=== PATIENT | male | born 1945 | race Caucasian/White ===

== ENCOUNTER 2017-10-24 07:01 | Day surgery (SDC) | payer MEDICAID ==
[~2017-10-24] VITALS: Ht 172.7 cm; Wt 56.7 kg
[2017-10-24] VITALS (13 sets, daily range): BP systolic 105–207; BP diastolic 75–125
[~2017-10-24 07:01] MED LIST: ASPI-983 PO; ATOR80TA76 PO; CLOP75TA28 PO; FLUT16SP22 NSEACH; HYDR-87 PO; LISI-552 PO; LISI10TA2 PO; OXYB10TA PO; RT-ALBUINH IH
--- OUTSIDE RECORDS SUMMARY | 2017-10-24 07:04 | XMS REPORT ---
Author Author BLACK PERERA Organization [facility] Address [address] [place] [address] Care Team Providers Care Loader Magazine Grinder Name Role Phone DILMA BLACK Unavailable PROBLEMS Type Condition ICD9-CM Code [id number] Code Onset Dates Condition Status SNOMED Code Problem COPD (chronic obstructive pulmonary disease) J44.9 Active 12753005 Problem Degenerative disc disease at L5-S1 level M51.36 Active 43909039 Problem HTN (hypertension) I10 Active 16791389 Problem Abnormal chest xray R93.8 Active 189666757 Problem Eczema L30.9 Active 89836943 Problem BPH (benign prostatic hyperplasia) N40.0 Active 662699178 Problem Environmental allergies Z91.09 Active 509146558 Problem Overactive bladder N32.81 Active 866663681 Problem Right hip pain M25.551 Active 893904571555647 Problem Oropharyngeal dysphagia R13.12 Active 32624816 Problem 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 Active 706735276 Problem 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 Active 697535528 Problem Actinic keratosis L57.0 Active 656444110 ALLERGIES No Information SOCIAL HISTORY Never Assessed PLAN OF CARE VITAL SIGNS MEDICATIONS Medication Instructions Dosage Frequency Start Date End Date Duration Status Hydrocodone-Ibuprofen 7.5-200 MG Orally 3 times a day 1 tablet as needed 8h Dec, 28 days Active RESULTS No Results PROCEDURES No Known procedures IMMUNIZATIONS No Known Immunizations MEDICAL (GENERAL) HISTORY Type Description Date Medical History Hypertension Medical History Arthritis Medical History chronic back pain Medical History chronic canabis use Surgical History hernia repair Surgical History right hip replacement Hospitalization History surgeries only
--- OUTSIDE RECORDS SUMMARY | 2017-10-24 07:04 | XMS REPORT ---
Author Author BLACK PERERA Organization [facility] [place] Address [address] [place] [address] Care Team Providers Care Scientific Recruiter Name Role Phone DEANN PERERANETTE Unavailable PROBLEMS Type Condition ICD9-CM Code [id number] Code Onset Dates Condition Status SNOMED Code Problem COPD (chronic obstructive pulmonary disease) J44.9 Active 00171162 Problem Degenerative disc disease at L5-S1 level M51.36 Active 26131437 Problem HTN (hypertension) I10 Active 64645726 Problem Abnormal chest xray R93.8 Active 782222195 Problem Eczema L30.9 Active 34659900 Problem BPH (benign prostatic hyperplasia) N40.0 Active 072435626 Problem Environmental allergies Z91.09 Active 468448256 Problem Overactive bladder N32.81 Active 684558096 Problem Right hip pain M25.551 Active 101000005447721 Problem Oropharyngeal dysphagia R13.12 Active 77315862 Problem 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 Active 458199397 Problem 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 Active 783886518 Problem Actinic keratosis L57.0 Active 026030363 ALLERGIES No Known Allergies SOCIAL HISTORY Never Assessed PLAN OF CARE Activity Details Follow Up 2 Weeks Reason:actinic keratosis Future/Pending Procedure CRYOTHERAPY OF SKIN VITAL SIGNS Height 67.75 in 2017-03-20 Weight 124.5 lbs 2017-03-20 Temperature 97.7 degrees Fahrenheit 2017-03-20 Heart Rate 56 bpm 2017-03-20 Respiratory Rate 18 2017-03-20 BMI 19.07 kg/m2 2017-03-20 Blood pressure systolic 124 mmHg 2017-03-20 Blood pressure diastolic 67 mmHg 2017-03-20 MEDICATIONS Medication Instructions Dosage Frequency Start Date End Date Duration Status Ventolin HFA 108 (90 Base) MCG/ACT Inhalation every 4 hrs 2 puffs as needed 4h Dec, Active Hydrocodone-Ibuprofen 7.5-200 MG Orally 3 times a day 1 tablet as needed 8h February, Active Fluticasone Propionate 50 MCG/ACT Nasally Once a day 1 spray in each nostril 24h Dec, Active Oxybutynin Chloride ER 10 mg Orally Once a day 1 tablet 24h Active Lisinopril 20 mg Orally Once a day 1 tablet 24h Active Clobetasol Propionate 0.05 % Externally Twice a day 1 application to affected area 12h Dec, Active RESULTS No Results PROCEDURES Procedure Date Ordered Result Body Site CRYOTHERAPY OF SKIN March 20, 2017 IMMUNIZATIONS No Known Immunizations MEDICAL (GENERAL) HISTORY Type Description Date Medical History Hypertension Medical History Arthritis Medical History chronic back pain Medical History chronic canabis use Surgical History hernia repair Surgical History right hip replacement Hospitalization History surgeries only
--- OUTSIDE RECORDS SUMMARY | 2017-10-24 07:04 | XMS REPORT ---
Author Author BLACK PERERA Organization [facility] Address [address] [place] [address] Care Team Providers Care Communications Executive Name Role Phone BLACK PERERA Unavailable PROBLEMS Type Condition ICD9-CM Code YOY85-US Code Onset Dates Condition Status SNOMED Code Problem COPD (chronic obstructive pulmonary disease) J44.9 Active 29575820 Problem Degenerative disc disease at L5-S1 level M51.36 Active 72776470 Problem HTN (hypertension) I10 Active 85069488 Problem Abnormal chest xray R93.8 Active 820719099 Problem Eczema L30.9 Active 04660789 Problem BPH (benign prostatic hyperplasia) N40.0 Active 099100384 Problem Environmental allergies Z91.09 Active 877564367 Problem Overactive bladder N32.81 Active 368991290 Problem Right hip pain M25.551 Active 467676765067118 Problem Oropharyngeal dysphagia R13.12 Active 05012162 Problem 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 Active 488754955 Problem 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
--- OUTSIDE RECORDS SUMMARY | 2017-10-24 07:05 | XMS REPORT ---
Author Author BLACK PERERA Organization [facility] Address [address] [place] [address] Care Team Providers Care Science Manager Name Role Phone BLACK PERERA Unavailable PROBLEMS Type Condition ICD9-CM Code RST44-ZV Code Onset Dates Condition Status SNOMED Code Problem COPD (chronic obstructive pulmonary disease) J44.9 Active 17266077 Problem Degenerative disc disease at L5-S1 level M51.36 Active 53225630 Problem HTN (hypertension) I10 Active 43040790 Problem Abnormal chest xray R93.8 Active 786822332 Problem Eczema L30.9 Active 99374748 Problem BPH (benign prostatic hyperplasia) N40.0 Active 103724341 Problem Environmental allergies Z91.09 Active 253584647 Problem Overactive bladder N32.81 Active 461666672 Problem Right hip pain M25.551 Active 406860593024920 Problem Oropharyngeal dysphagia R13.12 Active 93649546 Problem 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
[2017-10-24] MEDS ORDERED: LIDOCAINE 1% INJ 50 ML (XYLOCAINE) VIAL ONE (07:06)
[2017-10-24] MEDS ORDERED: NS IV 1000 ML 1,000 ML ONE (07:06)
[2017-10-24] MEDS ORDERED: HEParin (CATH LAB) 2,000 ML IV ONE (07:07)
[2017-10-24] MEDS ORDERED: CLOP75TA69 PO (07:53)
[2017-10-24] MEDS ORDERED: LISI10TA2 PO (07:53)
[2017-10-24] MEDS ORDERED: ATOR80TA76 PO (07:53)
[2017-10-24] MEDS ORDERED: ASPI-983 PO (07:53)
[2017-10-24] MEDS: NS IV 1000 ML 1,000 ML IV SCH ×2 (07:54→17:28)
[2017-10-24 08:28] LABS: HEMOGLOBIN 14.1 G/DL (13.3-17.7); MEAN PLATELET VOLUME 9.4 FL (7.4-10.4); RED BLOOD COUNT 4.68 10^6/uL (4.35-5.85); RED CELL DISTRIBUTION WIDTH 12.6 % (10.0-14.5); WHITE BLOOD COUNT 7.9 10^3/uL (4.3-11.0)
[2017-10-24 08:39] LABS: INR 1.1 (0.8-1.4); PROTHROMBIN TIME PATIENT 14.1 SEC (12.2-14.7)
[2017-10-24] MEDS ORDERED: fentaNYL INJECTION 100 MCG/2 ML AMP ONE (08:39)
[2017-10-24] MEDS ORDERED: MIDAZOLAM 5 MG/5 ML (VERSED) VIAL ONE (08:39)
[2017-10-24] MEDS ORDERED: diphenhydrAMINE 50 MG/ML INJ (BENADRYL) ONE (08:39)
[2017-10-24 08:48] LABS: ALANINE AMINOTRANSFERASE 19 U/L (0-55); ALBUMIN 4.2 GM/DL (3.2-4.5); ALKALINE PHOSPHATASE 68 U/L (40-136); BILIRUBIN,TOTAL 0.9 MG/DL (0.1-1.0); BUN/CREATININE RATIO 15; CALCIUM 9.8 MG/DL (8.5-10.1); CARBON DIOXIDE 24 MMOL/L (21-32); CHLORIDE 104 MMOL/L (98-107); CHOLESTEROL 113 MG/DL (< 200); CREATININE SERUM 0.81 MG/DL (0.60-1.30); GFR ESTIMATED > 60; GLUCOSE 93 MG/DL (70-105); HDL CHOLESTEROL 47 MG/DL (40-60); POTASSIUM 4.2 MMOL/L (3.6-5.0); SODIUM 140 MMOL/L (135-145); TOTAL PROTEIN 7.2 GM/DL (6.4-8.2); TRIGLYCERIDES 69 MG/DL (<150); VLDL CHOLESTEROL 14 MG/DL (5-40)
[2017-10-24] MEDS ORDERED: EPTIFIBATIDE BOLUS 10 ML IV ONE (09:28)
[2017-10-24] MEDS ORDERED: HEParin 1000 UNIT/ML (10ML VIAL) FOR BOLUS ONE (09:28)
[2017-10-24] MEDS ORDERED: NITROGLYCERIN DRIP 25 MG/D5W 250 ML IV ONE (09:28)
[2017-10-24] MEDS ORDERED: CLOPIDOGREL 300 MG (PLAVIX) TABLET PO ONE (10:38)
[2017-10-24] MEDS ORDERED: ASPIRIN 81 MG CHEW (CHILDREN'S ASA) ONE (10:38)
[2017-10-24] MEDS ORDERED: NS IV 1000 ML 1,000 ML IV SCH (11:21)
--- NOTE | 2017-10-24 11:21 | Cardiac Procedure Note-CS/ASA ---
Pre-Procedure Note Pre-Op Procedure Note H&P Reviewed The H&P was reviewed, patient examined and no changes noted. Date H&P Reviewed: Oct 24, 2017 Time H&P Reviewed: 09:00 Conscious Sedation Pre-Proced Time Reviewed: 09:00 ASA Class: 3 Airway Mallampati Classification: ([place] appropriate class) I. II. III, IV Lungs Heart ASA score ASA 1: a normal healthy patient ASA 2: a patient with a mild systemic disease (mid diabetes, controlled hypertension, obesity ASA 3: a patient with a severe systemic disease that limits activity (angina , COPD, prior Myocardial infarction) ASA 4: a patient with an incapacitating disease that is a constant threat to life (CHF, renal failure) ASA 5: a moribund patient not expected to survive 24 hrs. (ruptured aneurysm) ASA 6: a declared brain patient whose organs are being harvested. For emergent operations, add the letter E after the classification Grade 2 Sedation Plan: Analgesia, Amnesia, Plan communicated to team members, Discussed options with patient/fam, Discussed risks with patient/fam Note The patient is an appropriate candidate to undergo the planned procedure, sedation, and anesthesia. The patient immediately re-assessed prior to indication. KORY VASQUEZ MD FACP FAC CCDS Oct 24, 2017 11:21
[2017-10-24] MEDS ORDERED: HYDROcodone /IBUPROFEN (VICOPROFEN) 7.5 MG/ 200 MG TAB PO PRN (11:30)
[2017-10-24] MEDS ORDERED: PATIENT MAY USE OWN MEDS, ALL PO SCH (11:30)
[2017-10-24] MEDS ORDERED: amLODIPine 10 MG (NORVASC) TAB PO NR (11:39)
[2017-10-24] MEDS ORDERED: RT-ALBUTEROL SULF 2.5 MG/3 ML PRE-MIX VIAL INH PRN (11:45)
--- NOTE | 2017-10-24 14:24 | CARDIAC CATHETERIZATION ---
DATE OF SERVICE: 10/24/2017 CARDIAC CATHETERIZATION AND CORONARY INTERVENTION REPORT The patient is a 72-year-old gentleman who is known to have coronary artery disease. He presented with acute inferior wall ST elevation myocardial infarction 3 days after the onset of symptoms in early 08/2017. He underwent successful balloon angioplasty of the distal right coronary artery into the proximal right coronary artery. He has now been having recurrent chest discomfort and some increase in his baseline shortness of breath. Cardiac catheterization was carried out today after having obtained an informed consent for cardiac catheterization and possible ad hoc coronary intervention. PROCEDURE: He was brought to the cardiac catheterization laboratory in a fasting state. Right groin was prepared and draped in the usual sterile fashion. A 1% lidocaine for local anesthesia. Modified Seldinger technique was used to advance a 5-[place] Islander sheath into the right femoral artery. A 5-[place] JL4 catheter was used for left coronary angiography. A 5-[place] JR4 catheter was used for right coronary angiography. A 5-[place] pigtail catheter was used for left heart catheterization and left ventricular angiography. PERCUTANEOUS INTERVENTION TO THE RIGHT CORONARY ARTERY: Following completion of the diagnostic procedure, we carried out percutaneous intervention to the right coronary artery where the patient had multiple lesions of up to approximately 90%. We exchanged the sheath over a wire for a 6-[place]er sheath. We gave 4000 units of intravenous heparin. A double bolus of Integrilin was also given during the procedure. We exchanged the sheath over a wire for a 6-[place] Islander sheath and used a 6-[place] JR4 guide catheter with side holes to engage the right coronary artery and to carry out intervention. We advanced a Choice floppy wire across the lesions and placed the distal end of wire in a distal terminal branch of the right coronary artery. We carried out balloon angioplasty in the distal, mid and proximal right coronary artery with Emerge 2.5 x 30 mm balloon. This reduced the stenosis from up to 90% to up to approximately 70%. We removed the balloon. We tried to advance an Alpine Xience 2.75 x 30 mm stent, but we were unable to do so. This is because the right coronary artery is very tortuous, very calcified, and had multiple lesions. We readvanced another wire (a choice extra support). This served as a hilda wire and we then tried to advance the stent again, but we were again unable to do so. We then decided to use a shorter stent. We were able to advance an Alpine Xience 2.75 x 15 mm stent. We chose to position this at the most difficult lesion, which was in the mid right coronary artery at a sharp curve. The stent was deployed at 16 atmospheres. Subsequent angiography revealed that the mid right coronary artery with the patient had approximately 90% stenosis, had 0% residual stenosis. We then removed the hilda wire. The Choice floppy wire, over which, the stent had been delivered, was left in place. We advanced another Alpine Xience 2.75 x 18 mm stent, but were not able to advance it through the proximal mid right coronary artery. We positioned this in the proximal right coronary artery at the site of approximately 70% stenosis and the stent was deployed at 16 atmospheres and the proximal part of this postdilated at 20 atmospheres. Subsequent angiography revealed 0% residual stenosis in the proximal right coronary artery where the patient previously had 70% to 80% stenosis. The distal right coronary artery, beyond the mid right coronary artery stent has a residual of approximately 50% to 60%, following balloon angioplasty today. Flow throughout the vessel is normal (ARNOLD 3). This was considered to be a good result and we decided to remove the angioplasty equipment after taking multiple views of the right coronary artery. We performed angiography of the right femoral artery through the sheath and Mynx was used to achieve hemostasis. Overall, he tolerated the procedure well. HEMODYNAMICS: Left ventricular end-diastolic pressure following coronary angiography was 14 mmHg. There was no significant pressure gradient on pullback across the aortic valve. Ascending aortic pressure 136/69 with a mean of 96 mmHg. LEFT VENTRICULAR ANGIOGRAPHY: Left ventricular angiography was carried out in the right anterior oblique projection. Global left ventricular systolic function is mildly impaired. There is diaphragmatic akinesis. Left ventricular ejection fraction is 45% to 50%. There does not appear to be significant mitral regurgitation. CORONARY ANGIOGRAPHY: Diffuse coronary calcification is present in all coronary vessels. The left main coronary artery does not exhibit significant obstructive disease. The ostial left anterior descending and the ostial left circumflex artery have approximately 50% stenosis. The right coronary artery is dominant. It had 70% proximal, 90% mid vessel and a long, up to 90%, mid to distal vessel stenosis. The distal stenosis was treated with balloon angioplasty, which reduced the stenosis to 50% to 60%. The mid right coronary artery stenosis was treated with balloon angioplasty and subsequent stenting with Alpine Xience 2.75 x 15 mm stent, which reduced the stenosis to 0% residual stenosis. The proximal right coronary artery stenosis was treated with balloon angioplasty followed by stenting (Alpine Xience 2.75 x 18 mm) with a reduction of stenosis to 0% residual. CONCLUSIONS: 1. Coronary artery disease consisting of 50% ostial stenosis of the left anterior descending and the left circumflex arteries. The right coronary artery had 70% proximal, 90% mid vessel, and a long up to 90% stenosis in the mid to distal right coronary artery. The proximal right coronary stenosis was treated with Alpine Xience 2.75 x 18 mm stent, reducing the stenosis to 0% residual stenosis. The mid right coronary artery stenosis was treated with Alpine Xience 2.75 x 15 mm stent, reducing the stenosis to 0% residual. The mid to distal right coronary artery stenosis was treated with balloon angioplasty reducing the stenosis to 50% to 60%. 2. Diaphragmatic akinesis of the left ventricle. 3. Mild impairment of global left ventricular systolic function with ejection fraction of 45% to 50%. 4. Mild elevation of left ventricular end-diastolic pressure. DISCUSSION AND RECOMMENDATIONS: Previous cardiac regimen, including dual antiplatelet therapy, SHAHRIAR-inhibitor therapy and statin therapy is being continued. He is being hospitalized for observation after today's procedure. We have advised him to avoid tobacco and marijuana use. Job ID: [id number] DocumentID: [id number] Dictated Date: 10/24/2017 11:05:13 Mash Tub Cooker Date: 10/24/2017 14:24:32 Dictated By: KORY VASQUEZ MD, MA, FACP, FACC, MTDD
[2017-10-24] MEDS: HYDROcodone /IBUPROFEN (VICOPROFEN) 7.5 MG/ 200 MG TAB PO PRN ×2 (16:31→21:03)
[2017-10-24] MEDS ORDERED: ATORVASTATIN 80 MG (LIPITOR) TABLET PO SCH (21:00)
[2017-10-25] VITALS: BP 114/68
[2017-10-25 04:00] VITALS: BP 106/92
[2017-10-25] MEDS: HYDROcodone /IBUPROFEN (VICOPROFEN) 7.5 MG/ 200 MG TAB PO PRN ×2 (05:40→12:52)
[2017-10-25 08:00] VITALS: BP 126/88
--- NOTE | 2017-10-25 08:23 | Progress Note-Cardiology ---
Cardiology SOAP Progress Note Subjective: Sitting up in bed. Wants to go home. No c/o CP, palpitations, dyspnea, syncope or near syncope. No c/o right groin pain. Objective: I&O/Vital Signs Vital Sign - Last 12Hours 10/25/17 10/25/17 10/25/17 10/25/17 04:00 04:00 07:00 08:00 Temp 97.6 Pulse 79 63 Resp 22 B/P (MAP) 106/92 (97) Pulse Ox 96 O2 Delivery Room Air Room Air Room Air 10/25/17 10/25/17 10/25/17 10/25/17 08:00 08:00 12:00 12:00 Temp 97.7 B/P (MAP) 126/88 (101) 131/51 (77) O2 Delivery Room Air Room Air Room Air Room Air 10/25/17 10/25/17 13:00 14:45 Pulse 49 B/P (MAP) Intake and Output 10/25/17 00:00 Intake Total 200 ml Output Total 850 ml Balance -650 ml Weight (Pounds): 125 Weight (Ounces): 0.0 Weight (Calculated Kilograms): 56.720985 Constitutional: AAO x 3 Respiratory: lungs clear to auscultation, other (prolonged exp phase) Cardiovascular: regular rate-rhythm, No JVD, S1 and S2 Gastrointestional: No tender, soft, audible bowel sounds Extremities: no lower extremity edema bilateral Neurologic/Psychiatric: grossly intact Skin: No rash, No ulcerations Results/Procedures: Labs Laboratory Tests 10/25/17 11:34: White Blood Count 10.7, Red Blood Count 4.70, Hemoglobin 14.1, Hematocrit 41, Mean Corpuscular Volume 87, Mean Corpuscular Hemoglobin 30, Mean Corpuscular Hemoglobin Concent 35, Red Cell Distribution Width 12.9, Platelet Count 233, Mean Platelet Volume 9.5, Sodium Level 138, Potassium Level 4.3, Chloride Level 105, Carbon Dioxide Level 24, Anion Gap 9, Blood Urea Nitrogen 17, Creatinine 0.96, Estimat Glomerular Filtration Rate > 60, BUN/Creatinine Ratio 18, Glucose Level 120H, Calcium Level 9.3 Microbiology 10/24/17 MRSA Screen - Final, Complete MRSA not isolated A/P: Assessment: Coronary artery disease. Last card cath of 10/24/17 showed 50% ostial stenosis of the left anterior descending and the left circumflex arteries. The right coronary artery had 70% proximal, 90% mid vessel, and a long up to 90% stenosis in the mid to distal right coronary artery. The proximal right coronary stenosis was treated with Alpine Xience 2.75 x 18 mm stent, reducing the stenosis to 0% residual stenosis. The mid right coronary artery stenosis was treated with Alpine Xience 2.75 x 15 mm stent, reducing the stenosis to 0% residual. The mid to distal right coronary artery stenosis was treated with balloon angioplasty, reducing the stenosis to 50% to 60%. Diaphragmatic akinesis of the left ventricle. Mild impairment of global left ventricular systolic function with ejection fraction of 45% to 50%. Mild elevation of left ventricular end-diastolic pressure. Inferior wall STEMI in early Aug 2017 (he presented on 09/01/17 with symptoms of approx 72 hours duration). This was treated with primary balloon angioplasty Chronic marijuana use - cessation advise Previous tobacco use. He quit 2005 COPD, by history H/o R hip surg several years ago H/o hypertension Chronic pain syndrome treated with narcotic analgesics by his pcp Hyperthyroidism (TSH 0.02 on 09/02/17) managed byv his pcp at [facility] Plan: Ok to discharge home today He refused any lab draw this morning Discussed compliance with medications Out pt f/u in a week Advised immediate cessation of marijuana Physician Assessment Physician Assessment No cp or palp or syncope or groin discomfort Lungs: good bilat air entry Cor: reg Ext: no c/c/e R groin: mild bruising, no hematoma A&R * As documented in our note above that I updated (italics) and as noted below * I discussed with him in detail the card cath findings on 10/24/17 and the interventions undertaken * I discussed in detail risk factor modification, our treatment strategy and the importance of med compliance KIKO LOYA Oct 25, 2017 08:23 KORY VASQUEZ MD [facility] Oct 25, 2017 15:08
[2017-10-25] MEDS ORDERED: CLOPIDOGREL 75 MG (PLAVIX) TABLET PO SCH (09:00)
[2017-10-25] MEDS ORDERED: ASPIRIN E.C. 81 MG (ECOTRIN) TAB PO SCH (09:00)
[2017-10-25] MEDS ORDERED: lisINopril 10 MG (PRINIVIL) TAB PO SCH (09:00)
[2017-10-25] MEDS ORDERED: LISINOPRIL 20MG TABLET PO SCH (09:00)
[2017-10-25] MEDS ORDERED: FLUTICASONE NASAL SPRAY (FLONASE) 16 GM BTL NS SCH (09:00)
[2017-10-25] MEDS ORDERED: METO-387 PO (10:05)
--- NOTE | 2017-10-25 10:06 | Discharge Inst-Cardiology ---
Discharge Inst-Cardiac Discharge Medications New Medications: Metoprolol Succinate (Metoprolol Succinate) 25 Mg Tab.er.24h 25 MG PO DAILY, #30 TAB 5 Refills Continued Medications: Albuterol Sulfate (Proventil Hfa) 6.7 Gm Hfa.aer.ad 2 PUFF IH Q4H PRN for SHORTNESS OF BREATH Aspirin (Aspirin EC) 81 Mg Tablet.dr 81 MG PO DAILY, TAB Atorvastatin Calcium (Atorvastatin Calcium) 80 Mg Tablet 80 MG PO HS, TAB Clopidogrel Bisulfate (Plavix) 75 Mg Tablet 75 MG PO DAILY, TAB Fluticasone Propionate (Fluticasone Propionate) 16 Gm Grady.susp 1 SPRAY NSEACH DAILY Hydrocodone/Ibuprofen (Hydrocodone-Ibuprofen 7.5-200) 1 Each Tablet 1 TAB PO QID PRN for PAIN-MODERATE Lisinopril (Lisinopril) 10 Mg Tablet 20 MG PO DAILY, TAB Oxybutynin Chloride (Oxybutynin Chloride ER) 10 Mg Tab.er.24 10 MG PO DAILY New, Converted or Re-Newed RX: Transmitted to Pharmacy Patient Instructions Patient Instructions: Please schedule out patient follow up appt in one week Orders-Post D/C & Referrals Pneu Vac Indicated: Yes KIKO LOYA Oct 25, 2017 10:06
[2017-10-25 11:44] LABS: HEMOGLOBIN 14.1 G/DL (13.3-17.7); MEAN PLATELET VOLUME 9.5 FL (7.4-10.4); RED BLOOD COUNT 4.7 10^6/uL (4.35-5.85); RED CELL DISTRIBUTION WIDTH 12.9 % (10.0-14.5); WHITE BLOOD COUNT 10.7 10^3/uL (4.3-11.0)
[2017-10-25 12:00] VITALS: BP 131/51
[2017-10-25 12:08] LABS: BUN/CREATININE RATIO 18; CALCIUM 9.3 MG/DL (8.5-10.1); CARBON DIOXIDE 24 MMOL/L (21-32); CHLORIDE 105 MMOL/L (98-107); CREATININE SERUM 0.96 MG/DL (0.60-1.30); GFR ESTIMATED > 60; GLUCOSE 120 MG/DL (70-105); POTASSIUM 4.3 MMOL/L (3.6-5.0); SODIUM 138 MMOL/L (135-145)
== END 2017-10-25 14:48 | disposition home or self-care (01) ==
LOC: CATH 07:01 → ICU 11:10 → CATH 10-25 14:48
PROVIDERS: ATTEND Internal Medicine Cardiovascular Disease
DX: I25.10 Atherosclerotic heart disease of native coronary artery without angina pectoris (principal); I25.2 Old myocardial infarction; J44.9 Chronic obstructive pulmonary disease, unspecified; I10 Essential (primary) hypertension; G89.4 Chronic pain syndrome; E05.90 Thyrotoxicosis, unspecified without thyrotoxic crisis or storm; F12.90 Cannabis use, unspecified, uncomplicated; Z87.891 Personal history of nicotine dependence; Z79.899 Other long term (current) drug therapy
CPT/HCPCS: 36415; 80048; 80053; 80061; 85027; 85610; 85730; 87081; 92928; 93005; 93458

== ENCOUNTER → 2018-01-13 | Outpatient (CLI) | payer MEDICAID ==
[~2018-01-13] MED LIST changes: +CLOP75TA69 PO; +METO-387 PO
== END ==
LOC: CARD 13:03
PROVIDERS: ATTEND Internal Medicine Cardiovascular Disease
DX: I25.10 Atherosclerotic heart disease of native coronary artery without angina pectoris (principal); I25.5 Ischemic cardiomyopathy; I50.22 Chronic systolic (congestive) heart failure; J44.9 Chronic obstructive pulmonary disease, unspecified; Z86.39 Personal history of other endocrine, nutritional and metabolic disease
CPT/HCPCS: 93306

== ENCOUNTER → 2018-01-30 | Outpatient (CLI) | payer MEDICAID ==
[~2018-01-30] MED LIST changes: +CATHETER FLUSH 10 ML SYR IV PRN; +IOHEXOL 350 MG/ML 100 ML (OMNIPAQUE 350) VIAL IV ONE; +NS 250 ML (IVPB) BAG IV ONE
[2018-01-30 08:46] LABS: BASOPHILS % (AUTO) 0 % (0-10); EOSINOPHILS # (AUTO) 0.2 10^3/uL (0.0-0.3); EOSINOPHILS % (AUTO) 2 % (0-10); HEMATOCRIT 45 % (40-54); HEMOGLOBIN 15.9 G/DL (13.3-17.7); LYMPHOCYTES % (AUTO) 26 % (12-44); MEAN CORPUSCULAR HEMOGLOBIN 30 PG (25-34); MEAN CORPUSCULAR HGB CONC 35 G/DL (32-36); MEAN CORPUSCULAR VOLUME 86 FL (80-99); MEAN PLATELET VOLUME 8.9 FL (7.4-10.4); MONOCYTES # (AUTO) 0.6 X 10^3 (0.0-1.0); MONOCYTES % (AUTO) 8 % (0-12); NEUTROPHILS # (AUTO) 4.8 X 10^3 (1.8-7.8); NEUTROPHILS % (AUTO) 63 % (42-75); PLATELET COUNT 286 10^3/uL (130-400); RED BLOOD COUNT 5.26 10^6/uL (4.35-5.85); WHITE BLOOD COUNT 7.7 10^3/uL (4.3-11.0)
[2018-01-30 09:04] LABS: ALANINE AMINOTRANSFERASE 30 U/L (0-55); ALBUMIN 4.7 GM/DL (3.2-4.5); ALKALINE PHOSPHATASE 72 U/L (40-136); BILIRUBIN,TOTAL 0.6 MG/DL (0.1-1.0); BUN/CREATININE RATIO 11; CALCIUM 10.4 MG/DL (8.5-10.1); CARBON DIOXIDE 23 MMOL/L (21-32); CHLORIDE 103 MMOL/L (98-107); CHOLESTEROL 128 MG/DL (< 200); CREATININE SERUM 0.89 MG/DL (0.60-1.30); GFR ESTIMATED > 60; GLUCOSE 105 MG/DL (70-105); HDL CHOLESTEROL 54 MG/DL (40-60); MAGNESIUM 2.2 MG/DL (1.8-2.4); POTASSIUM 4.6 MMOL/L (3.6-5.0); SODIUM 137 MMOL/L (135-145); TOTAL PROTEIN 8.3 GM/DL (6.4-8.2); TRIGLYCERIDES 66 MG/DL (<150); VLDL CHOLESTEROL 13 MG/DL (5-40)
[2018-01-30 09:33] LABS: ERYTHROCYTE SEDIMENTATION RATE 1 MM/HR (0-30)
--- NOTE | 2018-01-30 13:20 | Diagnostic Imaging Report ---
PROCEDURE: CT chest with contrast only. TECHNIQUE: Multiple contiguous axial images were obtained through the chest after administration of intravenous contrast. INDICATION: Chest pain. COMPARISON: There are no prior CT examinations available for comparison. FINDINGS: The heart size is within normal limits. There are coronary artery calcifications evident. The ascending aorta is not abnormally dilated, and there is no sign of a dissection. The ascending aorta measures 3.7 x 3.7 cm in maximum AP and transverse diameters. The pulmonary arteries do not fully opacify, but there is no definite defect to suggest a pulmonary embolus. There are a few small mediastinal nodes. These are not pathologically enlarged. The thyroid gland, where visualized, is unremarkable. There are emphysematous changes involving both lungs. There is also a small poorly defined parenchymal density in the left upper lung. This measures 0.9 x 1.9 cm. This may be secondary to scar formation. There is also a small 0.5 x 0.7 cm parenchymal density in the right apex. This could represent a small nodule. There is scar formation in the right apex as well. Of more concern, however, there is a 1.3 x 1.3 cm rounded soft tissue mass in the right infrahilar region amidst several pulmonary vessels. This mass has a smooth margin but is not calcified. This could represent a benign process. The possibility that this is related to neoplasm cannot be entirely excluded, however. If previous studies are available, they would be helpful for comparison. If there are no prior exams, then PET/CT would be recommended for further evaluation. The sections through the upper abdomen fail to show any sign of an acute abnormality. The bone windows are unremarkable for a fracture or for a destructive lesion. IMPRESSION: 1. There is a 1.3 x 1.3 cm noncalcified nodule in the right lung base. The precise etiology of this finding is not certain. Considerations and recommendations as above. 2. There are emphysematous changes involving both lungs. The areas of increased density in the lung apices are most likely chronic in nature. These could also be further evaluated by PET/CT or comparison to previous exams. 3. There is no acute cardiopulmonary abnormality noted. In particular, there is no evidence for an aneurysm or dissection of the ascending aorta. 4. There is coronary artery disease. Dictated by: Dictated on workstation # [id number]
== END ==
LOC: RAD 08:32
PROVIDERS: ATTEND Nurse Practitioner Family
DX: R91.1 Solitary pulmonary nodule (principal); J43.9 Emphysema, unspecified; I25.10 Atherosclerotic heart disease of native coronary artery without angina pectoris; I65.23 Occlusion and stenosis of bilateral carotid arteries; I25.5 Ischemic cardiomyopathy; I50.22 Chronic systolic (congestive) heart failure; Z86.39 Personal history of other endocrine, nutritional and metabolic disease
CPT/HCPCS: 36415; 71260; 80053; 80061; 83735; 84443; 85025; 85652

== ENCOUNTER → 2018-04-01 | Outpatient (CLI) | payer MEDICAID ==
[~2018-04-01] MED LIST changes: -CATHETER FLUSH 10 ML SYR IV PRN; -IOHEXOL 350 MG/ML 100 ML (OMNIPAQUE 350) VIAL IV ONE; -NS 250 ML (IVPB) BAG IV ONE
--- NOTE | 2018-04-02 12:27 | Diagnostic Imaging Report ---
PET/CT INDICATION: Lung mass. TECHNIQUE: PET/CT imaging was obtained from the base of the skull through the pelvis after the administration of 11.82 mCi of F-[address] imaging was utilized for localization and attenuation correction purposes. The low energy CT utilized for attenuation correction is not considered to be of high enough spatial resolution to allow in and of itself a separate anatomical analysis. The CT chest exam performed on 01/30/2018 noted a 1.3 x 1.3 cm noncalcified nodule in the right lung base. It is not certain whether this is related to a benign process or to a malignancy. On this study that lesion shows only slight hypermetabolic activity. The maximum SUV in this area is approximately 1.2. I do suspect that this is a benign process. Even so, I would recommend a short-term (6 month) followup CT chest exam be performed for further study. There is no other hypermetabolic activity involving either lung to suggest malignancy. The previous CT exam did note a 0.9 x 1.9 cm poorly defined parenchymal density in the left upper lung. The maximum SUV in this area is less than 1. This finding is most likely secondary to scar formation. There is also a 0.7 mm parenchymal nodule in the right upper lobe. This finding does seem somewhat more conspicuous than on the prior exam but this area is not hypermetabolic either. The images through the abdomen and pelvis show no sign of any hypermetabolic activity that would indicate malignancy. There is physiologic activity in the kidneys, bowel and bladder. IMPRESSION: 1. The 1.3 cm lobulated density in the right lung base is not hypermetabolic. The other areas of increased density in the left midlung and right apex seen on the previous CT exam are not hypermetabolic either. A six-month followup CT chest exam would be recommended for further study. 2. There is no other hypermetabolic activity to suggest a malignant process. Dictated by: Dictated on workstation # [id number]
== END ==
LOC: RAD 09:37
PROVIDERS: ATTEND Nurse Practitioner Family
DX: J98.4 Other disorders of lung (principal); R91.8 Other nonspecific abnormal finding of lung field

== ENCOUNTER → 2018-04-14 | Outpatient (CLI) | payer MEDICAID ==
[~2018-04-14] MED LIST changes: +RT-ALBUTEROL SULF 2.5 MG/3 ML PRE-MIX VIAL INH ONE
== END ==
LOC: RT 15:30
PROVIDERS: ATTEND Nurse Practitioner Family
DX: J44.9 Chronic obstructive pulmonary disease, unspecified (principal)
CPT/HCPCS: 94060; 94726; 94729

== ENCOUNTER → 2018-10-07 | Outpatient (CLI) | payer MEDICAID ==
[~2018-10-07] MED LIST changes: -RT-ALBUTEROL SULF 2.5 MG/3 ML PRE-MIX VIAL INH ONE
--- NOTE | 2018-10-07 11:48 | Diagnostic Imaging Report ---
PROCEDURE: CT chest without contrast. TECHNIQUE: Multiple contiguous axial images were obtained through the chest without the use of intravenous contrast. INDICATION: Lung nodule. FINDINGS: The previous CT chest exam of 01/30/2018 noted a 1.3 x 1.3 cm noncalcified nodule in the right lung base. The subsequent PET/CT exam of 04/01/2018 noted that the nodular density in question was not hypermetabolic. On this study, that finding is again evident and does not appear to have changed significantly in size or appearance. The stability of this finding would suggest it is not related to an aggressive neoplastic process. Even it may prove worthwhile to have a short-term (6 month) followup CT chest exam for continued evaluation. The previous study also identified a small 0.5 x 0.7 cm nodule in the right upper lung as well as an area of scar formation in the right apex. Those findings are also again evident and unchanged. The irregular partially calcified parenchymal density in the left midlung seen previously is also stable (image 30 of 71). There is no new parenchymal abnormality noted. The emphysematous changes involving both lungs seen previously are again visualized and no different. There is still no sign of failure, pneumonia or pleural effusion to indicate an acute abnormality. The heart size is within normal limits. Coronary artery calcifications are again noted. The ascending aorta is not aneurysmally dilated. There is no obvious mediastinal or hilar adenopathy. Thyroid gland is generally unremarkable. The sections through the upper abdomen failed to show any sign of an acute abnormality. IMPRESSION: 1. The appearance of the chest is stable when compared with the prior exam. Specifically, the nodule in the right lung base has not changed and most likely this finding is benign. Even so, a six-month followup CT chest exam would be recommended for continued evaluation of this finding. 2. There are emphysematous changes involving both lungs but there is no sign of an acute cardiopulmonary abnormality. Dictated by: Dictated on workstation # [id number]
== END ==
LOC: RAD 11:10
PROVIDERS: ATTEND Nurse Practitioner Family
DX: J43.9 Emphysema, unspecified (principal); R91.1 Solitary pulmonary nodule; F12.10 Cannabis abuse, uncomplicated
CPT/HCPCS: 71250

== ENCOUNTER → 2022-10-01 | Outpatient (CLI) | payer MEDICAID ==
[~2022-10-01] MED LIST changes: +ASPI-1238 PO; -ASPI-983 PO; +CLOP-31 PO; -CLOP75TA69 PO; +HYDR-4085 PO; -HYDR-87 PO; -LISI-552 PO; -LISI10TA2 PO; +LISI10TA25 PO; +LISI20TA26 PO; -METO-387 PO; +MTP25TSR PO; -OXYB10TA PO; +OXYB10TA29 PO
--- NOTE | 2022-10-01 13:54 | Diagnostic Imaging Report ---
INDICATION: Right lung mass. TECHNIQUE: The serum blood glucose level at the time of injection was 109 mg/dL. The patient was administered 14.5 mCi of F-18 FDG intravenously in the right forearm and PET imaging was performed from the top of the skull to the mid thighs. COMPARISON: Prior PET/CT study from 04/01/2018. FINDINGS: There is symmetric activity throughout the brain. The soft tissues of the neck are unremarkable. No mediastinal or hilar hypermetabolism is identified. A lobulated density in the right lower lobe previously noted does show slight increase in size since a study from 2018, now measuring approximately 25 x 16 mm compared with 21 x 15 mm on the prior exam; however, this does not show hypermetabolic activity. Activity remains low. No suspicious areas of hypermetabolism in either lung are identified. The abdomen and pelvis demonstrate physiologic activity throughout the GI and tracts. No suspicious areas of hypermetabolism are identified. IMPRESSION: No suspicious hypermetabolic foci are identified. The lobulated density in the right lower lobe does show slight increase in size since the exam of 4 years earlier. Dictated by: Dictated on workstation # [id number]
== END ==
LOC: RAD 10:00
PROVIDERS: ATTEND Pediatrics
DX: R91.8 Other nonspecific abnormal finding of lung field (principal)
CPT/HCPCS: 78815; A9552

== ENCOUNTER 2023-04-23 10:49 | Observation (INO) | payer MEDICAID ==
[~2023-04-23] VITALS: Ht 172 cm; Wt 58.9 kg
[2023-04-23] MEDS ORDERED: ASPIRIN 81 MG CHEW (CHILDREN'S ASA) PO ONE (11:15)
--- NOTE | 2023-04-23 11:19 | ED Cardiac General ---
History of Present Illness General Chief Complaint: Cardiac/General Problems Stated Complaint: AFIB Nursing Triage Note: PATIENT IS BROUGHT VIA [facility]. EMS ON ALS. PATIENT IS ON 6L O2 NASAL CANNULA. 22G ON LEFT AC WITH 400ML NS GIVEN. PATIENT IS ALERT AND ORIENTED. DENIES CP. WAS SENT OVER FROM [facility] FOR A-FIB WITH RVR ON EKG. Source: patient Exam Limitations: no limitations (RAMILA CHAPIN) History of Present Illness Date Seen by Provider: Apr 23, 2023 Time Seen by Provider: 11:16 Initial Comments Patient is a 77-year-old male with a history of COPD, coronary artery disease, hypertension who presents to the ED with A-fib with RVR. Patient was seen at [facility]. Was sent to the ED by EMS for abnormal heart rhythm. Patient states over the past few months he has had increased shortness of breath. Denies of any specific chest pain. Patient states he has had a dry nonproductive cough. Has been using his breathing treatments at home without much improvement. Patient denies of any specific chest pain. Does report some generalized abdominal pain and states he does feel constipated with a bowel movement every other day. Bowel movement yesterday that was hard. Denies any vomiting, dysuria, hematuria, headache, dizziness, fever, chills or body aches. Denies history of A-fib. Does take Plavix for his history of coronary artery disease. Denies any leg swelling or leg pain. Denies any recent travels or surgeries. Patient had a cardiac stent in 2017. (RAMILA CHAPIN) Allergies and Home Medications Allergies Coded Allergies: No Known Drug Allergies (Unverified , 03/03/09) Patient Home Medication List Home Medication List Reviewed: Yes (RAMILA CHAPIN) Albuterol Sulfate (Proventil Hfa) 6.7 Gm Hfa.aer.ad, 2 PUFF IH Q4H PRN for SHORTNESS OF BREATH, (Reported) Entered as Reported by: JAIR HORNER on 09/01/17 1154 Aspirin (Aspirin EC) 81 Mg Tablet.dr, 81 MG PO DAILY, (Reported) Entered as Reported by: AMY TELLES on 10/24/17 0753 Atorvastatin Calcium (Atorvastatin Calcium) 80 Mg Tablet, 80 MG PO HS, (Reported) Entered as Reported by: AMY TELLES on 10/24/17 075 Clopidogrel Bisulfate (Plavix) 75 Mg Tablet, 75 MG PO DAILY, (Reported) Entered as Reported by: AMY TELLES on 10/24/17 075 Last Action: Last Taken Edited Fluticasone Propionate (Fluticasone Propionate) 16 Gm [place].susp, 1 SPRAY NSEACH DAILY, (Reported) Entered as Reported by: JAIR HORNER on 09/01/17 1154 Hydrocodone/Ibuprofen (Hydrocodone-Ibuprofen 7.5-200) 1 Each Tablet, 1 TAB PO QID PRN for PAIN-MODERATE, (Reported) Entered as Reported by: JAIR HORNER on 09/01/17 1154 Lisinopril (Lisinopril) 10 Mg Tablet, 20 MG PO DAILY, (Reported) Entered as Reported by: AMY TELLES on 10/24/17 075 Metoprolol Succinate (Metoprolol Succinate) 25 Mg Tab.er.24h, 25 MG PO DAILY Prescribed by: KIKO LOYA on 10/25/17 1005 Oxybutynin Chloride (Oxybutynin Chloride ER) 10 Mg Tab.er.24, 10 MG PO DAILY, (Reported) Entered as Reported by: JAIR HORNER on 09/01/17 1154 Review of Systems Review of Systems Constitutional: No chills, No diaphoresis EENTM: No Double Vision, No Eye Pain Respiratory: Cough; Denies Orthopnea; Shortness of Air Cardiovascular: Denies Chest Pain Gastrointestinal: Denies Abdominal Pain; Constipated; Denies Diarrhea, Denies Nausea, Denies Vomiting Genitourinary: Denies Burning, Denies Discharge Musculoskeletal: No back pain, No joint pain Skin: No change in color, No change in hair/nails (RAMILA CHAPIN) All Other Systems Reviewed Negative Unless Noted: Yes (RAMILA CHAPIN) Past Iyhuueg-Hdsevy-Mgdjkf Hx Patient Social History Tobacco Use?: No Substance use?: No Substance type: Marijuana, Other Additional substance use comme: FORMER USER OF MARIJUANA OF A WEEK AGO, QUIT SHOOTING UP METH YEARS BACK Substance frequency: Daily Alcohol Use?: No Pt feels they are or have been: No (RAMILA CHAPIN) Immunizations Up To Date First/Initial COVID19 Vaccinat: X'2 Second COVID19 Vaccination Markos: X'S 2 (RAMILA CHAPIN) Seasonal Allergies Seasonal Allergies: No (RAMILA CHAPIN) Past Medical History Surgery/Hospitalization HX: HX-HTN SURG.- TWO STENTS 2007 Surgeries: Yes Abdominal, Orthopedic Respiratory: No COPD Currently Using CPAP: No Currently Using BIPAP: No Cardiac: Yes Hypertension Neurological: No Genitourinary: No Gastrointestinal: Yes Abdominal Hernia, Hiatal Hernia Musculoskeletal: Yes Arthritis Endocrine: No HEENT: No Cancer: No Psychosocial: No Integumentary: No Blood Disorders: No Adverse Reaction/Blood Tranf: No (RAMILA CHAPIN) Family Medical History No Pertinent Family Hx (RAMILA CHAPIN) Physical Exam Vital Signs Vital Signs - First Documented (LANI GUZMAN MD) Vital Signs Capillary Refill : Less Than 3 Seconds (RAMILA CHAPIN) Height, Weight, BMI Height: 5'8.00" Weight: 125lbs. 0.0oz. [id number]; 19.00 BMI Method: General Appearance: No Apparent Distress, WD/WN HEENT: PERRL/EOMI, TMs Normal, Normal ENT Inspection, Pharynx Normal Neck: Full Range of Motion, Normal Inspection, Non Tender, Supple Respiratory: Chest Non Tender, Normal Breath Sounds, No Accessory Muscle Use, No Respiratory Distress, Decreased Breath Sounds Cardiovascular: No JVD, No Murmur, Irregularly Irregular Gastrointestinal: Normal Bowel Sounds, No Organomegaly, No Pulsatile Mass, Non Tender Extremity: Normal Capillary Refill, Normal Inspection, Normal Range of Motion; No Swelling Neurologic/Psychiatric: Alert, Oriented x3, No Motor/Sensory Deficits, Normal Mood/Affect, water pollution specialist II-XII Norm as Tested Skin: Normal Color, Warm/Dry (RAMILA CHAPIN) Progress/Results/Core Measures Results/Orders Lab Results Laboratory Tests Test 04/23/23 11:30 Range/Units White Blood Count 11.2 H 4.3-11.0 10^3/uL Red Blood Count 5.05 4.30-5.52 10^6/uL Hemoglobin 14.5 13.3-17.7 g/dL Hematocrit 45 40-54 % Mean Corpuscular Volume 88 80-99 fL Mean Corpuscular Hemoglobin 29 25-34 pg Mean Corpuscular Hemoglobin Concent 33 32-36 g/dL Red Cell Distribution Width 13.5 10.0-14.5 % Platelet Count 291 130-400 10^3/uL Mean Platelet Volume 8.9 L 9.0-12.2 fL Immature Granulocyte % (Auto) 0 % Neutrophils (%) (Auto) 76 H 42-75 % Lymphocytes (%) (Auto) 14 12-44 % Monocytes (%) (Auto) 8 0-12 % Eosinophils (%) (Auto) 1 0-10 % Basophils (%) (Auto) 0 0-10 % Neutrophils # (Auto) 8.5 H 1.8-7.8 10^3/uL Lymphocytes # (Auto) 1.6 1.0-4.0 10^3/uL Monocytes # (Auto) 0.9 0.0-1.0 10^3/uL Eosinophils # (Auto) 0.2 0.0-0.3 10^3/uL Basophils # (Auto) 0.0 0.0-0.1 10^3/uL Immature Granulocyte # (Auto) 0.1 0.0-0.1 10^3/uL Prothrombin Time 13.2 12.2-14.7 SEC INR Comment 1.0 0.8-1.4 Activated Partial Thromboplast Time 37 H 24-35 SEC D-Dimer 0.52 H 0.00-0.49 UG/ML Sodium Level 139 135-145 MMOL/L Potassium Level 4.2 3.6-5.0 MMOL/L Chloride Level 105 98-107 MMOL/L Carbon Dioxide Level 23 21-32 MMOL/L Anion Gap 11 5-14 MMOL/L Blood Urea Nitrogen 20 H 7-18 MG/DL Creatinine 1.00 0.60-1.30 MG/DL Estimat Glomerular Filtration Rate 78 BUN/Creatinine Ratio 20 Glucose Level 95 70-105 MG/DL Calcium Level 9.1 8.5-10.1 MG/DL Corrected Calcium 9.3 8.5-10.1 MG/DL Magnesium Level 2.0 1.6-2.4 MG/DL Total Bilirubin 0.3 0.1-1.0 MG/DL Aspartate Amino Transf (AST/SGOT) 19 5-34 U/L Alanine Aminotransferase (ALT/SGPT) 19 0-55 U/L Alkaline Phosphatase 99 40-136 U/L Myoglobin 61.2 10.0-92.0 NG/ML Troponin I < 0.028 <0.028 NG/ML B-Type Natriuretic Peptide 200.3 H <100.0 PG/ML Total Protein 7.1 6.4-8.2 GM/DL Albumin 3.7 3.2-4.5 GM/DL Lipase 10 8-78 U/L (LANI GUZMAN MD) My Orders Orders - LANI GUZMAN MD Ekg Tracing (04/23/23 10:51) (LANI GUZMAN MD) Medications Given in ED Current Medications Medications Dose Ordered Sig/Camilo Route Start Time Stop Time Status Last Admin Dose Admin Aspirin 324 mg ONCE ONCE PO 04/23/23 11:15 04/23/23 11:16 DC 04/23/23 11:26 324 MG Diltiazem HCl 20 mg ONCE ONCE IVP 04/23/23 11:15 04/23/23 11:16 DC 04/23/23 11:26 20 MG Iohexol 100 ml ONCE ONCE IV 04/23/23 12:15 04/23/23 12:19 DC 04/23/23 12:50 80 ML Sodium Chloride 100 ml ONCE ONCE IV 04/23/23 12:15 04/23/23 12:19 DC 04/23/23 12:50 80 ML (LANI GUZMAN MD) Vital Signs/I&O 04/23/23 04/23/23 04/23/23 04/23/23 10:49 10:49 11:26 14:30 Temp 36.0 Pulse 131 133 117 Resp 28 18 B/P (MAP) 144/106 (119) 144/106 159/128 (138) Pulse Ox 96 96 97 O2 Delivery Room Air Room Air Room Air (LANI GUZMAN MD) Blood Pressure Mean: 119 Comment Atrial fibrillation with rapid ventricular response. 128 bpm, QRS duration 93 MS, QTc 383 MS (RAMILA CHAPIN) Departure Communication (PCP) History of COPD does not require oxygen, ACS currently on Plavix who presents ED with shortness of breath for the past 2 months, dry cough. Was sent to the ED by EMS for A-fib with RVR. On arrival EKG with atrial fibrillation with RVR with a heart rate of 128. Patient was given 20 mg of Cardizem. General lab work, cardiac work-up, chest x-ray D-dimer was ordered. Patient did receive a full aspirin. He has no specific chest pain or abdominal pain. Oxygen remained 97% on room air. CBC showed hemoglobin 11.2. Chemistry grossly unremarkable. Normal troponin. BNP 200. Slight elevated D-dimer 0.52. Chest x-ray showed atelectasis versus infiltrate. States he is not on any current antibiotic. Does have albuterol treatments at home. CT angio of the chest was negative for PE. Did note increased size of a chronic lobulated circumscribed right lower lung mass which appears to be a mucoid impaction of a bronchus seal and regional bronchiectasis. Smaller nodules noted. Follow-up CT scan excluded neoplasm but may be infectious. Patient did receive a dose of Rocephin. Chronic emphysema changes. Patient was discussed with Dr. Lowry ambulance attendant. Heart rate did increase to 110. Recommend starting on a Cardizem drip. Patient was discussed with Dr. Toth hospitalist for [facility] who agreed accept patient for observation ICU. Appears to be new onset A-fib (RAMILA CHAPIN) Impression Primary Impression: Atrial fibrillation with RVR Disposition: ADMITTED INPATIENT Condition: Stable Admissions Decision to Admit Reason: Admit from ER (General) Decision to Admit/Date: Apr 23, 2023 Time/Decision to Admit Time: 13:34 (RAMILA CHAPIN) Departure-Patient Inst. Referrals: [facility] (PCP/Family) Primary Care Physician ATTENDING PHYSICIAN NOTE: I was physically present as attending physician in the emergency department during the care of this patient, but I was not directly involved in the decision making or delivery of care for this patient. (LANI GUZMAN MD) RAMILA CHAPIN Apr 23, 2023 11:19 LANI GUZMAN MD Apr 23, 2023 20:48
--- NOTE | 2023-04-23 11:30 | Diagnostic Imaging Report ---
CLINICAL INDICATION: Patient was brought via EMS. Patient is having 6 L of oxygen per nasal cannula. A fib with RVR. EXAM: Portable chest x-ray, upright view. COMPARISON: None. FINDINGS: There are mild patchy airspace opacities involving both lung bases with the right side more than the left. There is no pleural effusion or pneumothorax. Pulmonary vasculature and cardiac silhouette are within normal limits. Bones show no significant abnormality. IMPRESSION: There is mild bibasilar atelectasis versus infiltrates. Dictated by: Dictated on workstation # [id number]
[2023-04-23 11:43] LABS: BASOPHILS % (AUTO) 0 % (0-10); EOSINOPHILS # (AUTO) 0.2 10^3/uL (0.0-0.3); EOSINOPHILS % (AUTO) 1 % (0-10); HEMATOCRIT 45 % (40-54); HEMOGLOBIN 14.5 g/dL (13.3-17.7); LYMPHOCYTES # (AUTO) 1.6 10^3/uL (1.0-4.0); LYMPHOCYTES % (AUTO) 14 % (12-44); MEAN CORPUSCULAR HEMOGLOBIN 29 pg (25-34); MEAN CORPUSCULAR HGB CONC 33 g/dL (32-36); MEAN CORPUSCULAR VOLUME 88 fL (80-99); MEAN PLATELET VOLUME 8.9 fL (9.0-12.2); MONOCYTES # (AUTO) 0.9 10^3/uL (0.0-1.0); MONOCYTES % (AUTO) 8 % (0-12); NEUTROPHILS # (AUTO) 8.5 10^3/uL (1.8-7.8); NEUTROPHILS % (AUTO) 76 % (42-75); PLATELET COUNT 291 10^3/uL (130-400); WHITE BLOOD COUNT 11.2 10^3/uL (4.3-11.0)
[2023-04-23 11:57] LABS: ALBUMIN 3.7 GM/DL (3.2-4.5); CHLORIDE 105 MMOL/L (98-107); POTASSIUM 4.2 MMOL/L (3.6-5.0); SODIUM 139 MMOL/L (135-145)
[2023-04-23 11:58] LABS: CALCIUM 9.1 MG/DL (8.5-10.1)
[2023-04-23 11:59] LABS: GLUCOSE 95 MG/DL (70-105); TOTAL PROTEIN 7.1 GM/DL (6.4-8.2)
[2023-04-23 12:00] LABS: CARBON DIOXIDE 23 MMOL/L (21-32); PROTHROMBIN TIME PATIENT 13.2 SEC (12.2-14.7)
[2023-04-23 12:01] LABS: BILIRUBIN,TOTAL 0.3 MG/DL (0.1-1.0)
[2023-04-23 12:03] LABS: ALKALINE PHOSPHATASE 99 U/L (40-136); FIBRIN DEGRADATION PRODUCTS 0.52 UG/ML (0.00-0.49); GFR ESTIMATED 78
[2023-04-23 12:04] LABS: BUN/CREATININE RATIO 20
[2023-04-23 12:06] LABS: ALANINE AMINOTRANSFERASE 19 U/L (0-55)
[2023-04-23 12:07] LABS: LIPASE 10 U/L (8-78)
[2023-04-23] MEDS ORDERED: HOLD METFORMIN - RECEIVED CONTRAST 20 ML VIAL IV SCH (12:15)
[2023-04-23] MEDS ORDERED: IOHEXOL 350 MG/ML 100 ML (OMNIPAQUE 350) VIAL IV ONE (12:15)
[2023-04-23] MEDS ORDERED: NS 100 ML (IVPB) BAG IV ONE (12:15)
--- NOTE | 2023-04-23 13:16 | Diagnostic Imaging Report ---
INDICATION: Shortness of breath and chest pain. TECHNIQUE: All CT scans use one or more of the following dose optimizing techniques: automated exposure control, MA and/or KvP adjustment based on patient size and exam type or iterative reconstruction. COMPARISON: Study is compared with exam 01/30/2018. This is also compared with a more recent metabolic CT fusion PET 10/01/2022. FINDINGS: Pulmonary arterial branches are widely patent and well opacified. No filling defect. No PE. This patient has a chronic lobulated mass in the right lower lobe, which today measures 2.2 x 2.0 cm. This measured 1.8 x 1.6 cm back in 2018 and has had two PET scans in the interim, both showing no suspicious hypermetabolism associated with this lobulation. This today appears more likely owing to mucoid impaction and with a clmdzd-tv-baalg morphology, this may be from chronic allergic bronchopulmonary aspergillosis or other non-aggressive etiology. There are, however, new somewhat irregular smaller bilateral lower lobe opacities, on the right just above the hemidiaphragm a lesion measuring 1.6 x 1.3 cm present and in the left lower lobe a small nodule measuring 9 mm. Paraseptal cyst formation and sequelae of emphysema are chronic but progressed from priors. There is no pneumothorax. No lymphadenopathy. No pleural or pericardial effusion. The visible upper abdomen is stable. IMPRESSION: 1. Negative for PE. 2. 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 3. New smaller nodules have developed in both lower lobes. These warrant a short-term CT follow-up to exclude neoplasm but are more likely on an infectious basis as well. Repeat chest CT, would not require IV contrast, in 2-3 months' time suggested. 4. Chronic emphysematous changes and paraseptal cyst progressed from prior. 5. No lymphadenopathy or chest effusion. Dictated by: Dictated on workstation # [id number]
[2023-04-23] MEDS ORDERED: cefTRIAXone IV/IM 1,000 MG in NS (IVPB) 50 ML IV STA (13:40)
[2023-04-23] MEDS ORDERED: dilTIAZem DRIP PRE-MIX 125 ML IV SCH (13:45)
[2023-04-23] MEDS ORDERED: NS IV 500 ML 500 ML IV PRN (14:45)
[2023-04-23] MEDS ORDERED: ANTACID SUSP 30 ML UDC (MYLANTA) PO PRN (14:45)
[2023-04-23] MEDS ORDERED: BISACODYL 10 MG SUPP (DULCOLAX) PR PRN (14:45)
[2023-04-23] MEDS ORDERED: MELATONIN 3 MG TABLET PO PRN (14:45)
[2023-04-23] MEDS ORDERED: HYDROmorphone 2 MG/ML VIAL (DILAUDID) IV PRN (14:45)
[2023-04-23] MEDS ORDERED: diphenhydrAMINE 50 MG/ML INJ (BENADRYL) IVP PRN (14:45)
[2023-04-23] MEDS ORDERED: CALCIUM CARBONATE 500 MG (TUMS) TAB.CHEW PO PRN (14:45)
[2023-04-23] MEDS ORDERED: ACETAMINOPHEN 325 MG TABLET PO PRN (14:45)
[2023-04-23] MEDS ORDERED: MILK OF MAGNESIA 400 MG/5 ML 30 ML UDC PO PRN (14:45)
[2023-04-23] MEDS ORDERED: diphenhydrAMINE 25 MG TAB (BENADRYL) PO PRN (14:45)
[2023-04-23] MEDS ORDERED: ONDANSETRON 4 MG (ZOFRAN) ORAL DISSOLVE TAB PO PRN (14:45)
[2023-04-23] MEDS ORDERED: polyethylene glycoL POWDER 17 GM (MIRALAX) PACK PO PRN (14:45)
[2023-04-23] MEDS ORDERED: LACTULOSE SYRUP 10GM/15ML (ENULOSE) 30ML UDC PO PRN (14:45)
[2023-04-23] MEDS ORDERED: ONDANSETRON 4 MG/2 ML (SDV) Z0FRAN IV PRN (14:45)
[2023-04-23 15:10] VITALS: BP 159/112
--- NOTE | 2023-04-23 15:11 | Tele-ICU Consult ---
History of Present Illness History of Present Illness Date Seen by Provider: Apr 23, 2023 Time Seen by Provider: 15:06 History of Present Illness eICU admit note 77 yo M with cc of with a fib with RVR, Has had increased SOB, no chest pain. has dry cough. V rate up to 130, started on IV Cardizem, rate now down to 120, BP elevated at 153/125, Lost IV, just restarted so V rate went back up Has had SOB and cough for several months CTA showed extensive bullous lung diseae, no pulm emb, suggestion of mucoid impa ction in RLL, has several nodules in both bases seen on previous CT scans, pul art did not seem especially large PMH COPD, CAD-s/p stent 2017 on Plavix, HTN Allergies and Home Medications Allergies Coded Allergies: No Known Drug Allergies (Unverified , 03/03/09) Home Medications Albuterol Sulfate 6.7 Gm Hfa.aer.ad, 2 PUFF IH Q4H PRN for SHORTNESS OF BREATH, (Reported) Aspirin 81 Mg Tablet.dr, 81 MG PO DAILY, (Reported) Atorvastatin Calcium 80 Mg Tablet, 80 MG PO HS, (Reported) Clopidogrel Bisulfate 75 Mg Tablet, 75 MG PO DAILY, (Reported) Fluticasone Propionate 16 Gm [place].susp, 1 SPRAY NSEACH DAILY, (Reported) Hydrocodone/Ibuprofen 1 Each Tablet, 1 TAB PO QID PRN for PAIN-MODERATE, (Reported) Lisinopril 10 Mg Tablet, 20 MG PO DAILY, (Reported) Metoprolol Succinate 25 Mg Tab.er.24h, 25 MG PO DAILY Prescribed by: KIKO LOYA on 10/25/17 1005 Oxybutynin Chloride 10 Mg Tab.er.24, 10 MG PO DAILY, (Reported) Past Medical/Social/Family Hx Patient Social History Tobacco Use?: No Substance use?: No Substance type: Marijuana, Other FORMER USER OF MARIJUANA OF A WEEK AGO, QUIT SHOOTING UP METH YEARS BACK Substance frequency: Daily Alcohol Use?: No Pt stated abuse/neglect: No Immunizations Up To Date First/Initial COVID19 Vaccinat: X'2 Second COVID19 Vaccination Markos: X'S 2 Tetanus Booster (TDap): Unknown Current Status Advance Directives: No Primary Language: Bruneian Preferred Spoken Language: Bruneian Implanted or [employer] D: Stents Review of Systems Constitutional: see HPI EENTM: see HPI Respiratory: see HPI Cardiovascular: see HPI Gastrointestinal: see HPI Genitourinary: see HPI Musculoskeletal: see HPI Skin: see HPI Psychiatric/Neurological: See HPI Focused Exam Height, Weight, BMI Height: 5'8.00" Weight: 125lbs. 0.0oz. 56.258050ll; 19.00 BMI Method: Exam Exam Patient acknowledged, consented, and participated in this virtual visit which was conducted using real time audio/video Vital Signs Date Time Temp Pulse Resp B/P (MAP) Pulse Ox O2 Delivery O2 Flow Rate FiO2 04/23/23 14:45 118 04/23/23 14:35 36.5 106 20 159/112 96 Room Air 04/23/23 14:30 117 18 159/128 (138) 97 Room Air 04/23/23 11:26 133 144/106 04/23/23 10:49 96 Room Air 04/23/23 10:49 36.0 131 28 144/106 (119) 96 Room Air Height & Weight Height: 5'8.00" Weight: 125lbs. 0.0oz. 56.670405qv; 19.00 BMI Method: General Appearance: No Apparent Distress, WD/WN HEENT: PERRL/EOMI, TMs Normal, Normal ENT Inspection, Pharynx Normal Neck: Full Range of Motion, Normal Inspection, Non Tender, Supple Respiratory: Chest Non Tender, Lungs Clear, Normal Breath Sounds, No Accessory Muscle Use, No Respiratory Distress, Decreased Breath Sounds Cardiovascular: No JVD, No Murmur, Irregularly Irregular, Tachycardia Capillary Refill: Less Than 3 Seconds Gastrointestinal: normal bowel sounds, non tender, soft Extremity: Normal Capillary Refill, Normal Inspection, Normal Range of Motion, No Pedal Edema; No Swelling Neurologic/Psychiatric: Alert, Oriented x3, No Motor/Sensory Deficits, Normal Mood/Affect, precision aircraft structure assembler II-XII Norm as Tested Skin: Normal Color, Warm/Dry Results Lab Laboratory Tests 04/23/23 11:30 Assessment/Plan Assessment/Plan 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
[2023-04-23] MEDS: dilTIAZem DRIP PRE-MIX 125 ML IV SCH (15:17)
[2023-04-23] MEDS ORDERED: RT-ALBUTEROL/IPRATROPIUM 3 ML (DUONEB) VIAL INH PRN (15:30)
--- NOTE | 2023-04-23 15:47 | Consultation-Cardiology ---
HPI-Cardiology Cardiology Consultation: Date of Consultation 04/23/23 Date of Admission 04/23/2023 Attending Physician [place] Admitting Physician Admitting Physician: Arielle Toth DO Attending Physician: Arielle Toth DO Consulting Physician [place] MD HPI: Time Seen by a Provider: 15:30 The patient is a pleasant 77-year-old gentleman, chronically short of breath who was incidentally noted to have a rapid pulse rate and subsequently referred to this hospital's emergency room. Here he was noted to be in atrial fibrillation with rapid ventricular rate, in the 130s to 140s. The patient is chronically short of breath and does not feel that this has worsened recently. He denies chest pain, fever, sputum production. EKG showed atrial fibrillation with rapid ventricular rate. Ventricular response rate improved with IV diltiazem but he subsequently lost his IV. He has now received a new IV and is awaiting initiation of IV diltiazem drip. Past medical history significant for inferior wall ST elevation myocardial infarction in August 2017 at which time balloon angioplasty of his right coronary artery was performed, followed by multiple coronary stents in September 2017. Last transthoracic echo in 2018 shows a normal left ventricular ejection fraction. Review of Systems-Cardiology All Other Systems Reviewed Negative Unless Noted: Yes LTV-Tddzbo-Dnwoob Hx Patient Social History Smoking Status: Former Smoker Alcohol Use?: No Substance type: Methamphetamine, Marijuana Pt feels they are or have been: No Immunizations Up To Date Date of Influenza Vaccine: Sep 24, 2017 Past Medical History PMH As described under Assessment. Family Medical History Family Medical History: He does not report a fam h/o of early CAD or SCD Allergies and Home Medications Allergies Coded Allergies: No Known Drug Allergies (Unverified , 03/03/09) Patient Home Medication List Home Medication List Reviewed: Yes Albuterol Sulfate (Proventil Hfa) 6.7 Gm Hfa.aer.ad, 2 PUFF IH Q4H PRN for SHORTNESS OF BREATH, (Reported) Entered as Reported by: JAIR HORNER on 09/01/17 1154 Aspirin (Aspirin EC) 81 Mg Tablet.dr, 81 MG PO DAILY, (Reported) Entered as Reported by: AMY TELLES on 10/24/17 0753 Atorvastatin Calcium (Atorvastatin Calcium) 80 Mg Tablet, 80 MG PO HS, (Reported) Entered as Reported by: AMY TELLES on 10/24/17 075 Clopidogrel Bisulfate (Plavix) 75 Mg Tablet, 75 MG PO DAILY, (Reported) Entered as Reported by: AMY TELLES on 10/24/17 075 Fluticasone Propionate (Fluticasone Propionate) 16 Gm Spencer.susp, 1 SPRAY NSEACH DAILY, (Reported) Entered as Reported by: JAIR HORNER on 09/01/17 1154 Hydrocodone/Ibuprofen (Hydrocodone-Ibuprofen 7.5-200) 1 Each Tablet, 1 TAB PO QID PRN for PAIN-MODERATE, (Reported) Entered as Reported by: JAIR HORNER on 09/01/17 1154 Lisinopril (Lisinopril) 10 Mg Tablet, 20 MG PO DAILY, (Reported) Entered as Reported by: AMY TELLES on 10/24/17 075 Metoprolol Succinate (Metoprolol Succinate) 25 Mg Tab.er.24h, 25 MG PO DAILY Prescribed by: KIKO LOYA on 10/25/17 1005 Oxybutynin Chloride (Oxybutynin Chloride ER) 10 Mg Tab.er.24, 10 MG PO DAILY, (Reported) Entered as Reported by: JAIR HORNER on 09/01/17 1154 Exam Vital Signs Vital Signs Date Time Temp Pulse Resp B/P (MAP) Pulse Ox O2 Delivery O2 Flow Rate FiO2 04/23/23 15:17 118 159/112 04/23/23 15:15 27 97 Room Air 04/23/23 15:10 36.5 Labs Laboratory Tests Test 04/23/23 11:30 Range/Units White Blood Count 11.2 H 4.3-11.0 10^3/uL Red Blood Count 5.05 4.30-5.52 10^6/uL Hemoglobin 14.5 13.3-17.7 g/dL Hematocrit 45 40-54 % Mean Corpuscular Volume 88 80-99 fL Mean Corpuscular Hemoglobin 29 25-34 pg Mean Corpuscular Hemoglobin Concent 33 32-36 g/dL Red Cell Distribution Width 13.5 10.0-14.5 % Platelet Count 291 130-400 10^3/uL Mean Platelet Volume 8.9 L 9.0-12.2 fL Immature Granulocyte % (Auto) 0 % Neutrophils (%) (Auto) 76 H 42-75 % Lymphocytes (%) (Auto) 14 12-44 % Monocytes (%) (Auto) 8 0-12 % Eosinophils (%) (Auto) 1 0-10 % Basophils (%) (Auto) 0 0-10 % Neutrophils # (Auto) 8.5 H 1.8-7.8 10^3/uL Lymphocytes # (Auto) 1.6 1.0-4.0 10^3/uL Monocytes # (Auto) 0.9 0.0-1.0 10^3/uL Eosinophils # (Auto) 0.2 0.0-0.3 10^3/uL Basophils # (Auto) 0.0 0.0-0.1 10^3/uL Immature Granulocyte # (Auto) 0.1 0.0-0.1 10^3/uL Prothrombin Time 13.2 12.2-14.7 SEC INR Comment 1.0 0.8-1.4 Activated Partial Thromboplast Time 37 H 24-35 SEC D-Dimer 0.52 H 0.00-0.49 UG/ML Sodium Level 139 135-145 MMOL/L Potassium Level 4.2 3.6-5.0 MMOL/L Chloride Level 105 98-107 MMOL/L Carbon Dioxide Level 23 21-32 MMOL/L Anion Gap 11 5-14 MMOL/L Blood Urea Nitrogen 20 H 7-18 MG/DL Creatinine 1.00 0.60-1.30 MG/DL Estimat Glomerular Filtration Rate 78 BUN/Creatinine Ratio 20 Glucose Level 95 70-105 MG/DL Calcium Level 9.1 8.5-10.1 MG/DL Corrected Calcium 9.3 8.5-10.1 MG/DL Magnesium Level 2.0 1.6-2.4 MG/DL Total Bilirubin 0.3 0.1-1.0 MG/DL Aspartate Amino Transf (AST/SGOT) 19 5-34 U/L Alanine Aminotransferase (ALT/SGPT) 19 0-55 U/L Alkaline Phosphatase 99 40-136 U/L Myoglobin 61.2 10.0-92.0 NG/ML Troponin I < 0.028 <0.028 NG/ML B-Type Natriuretic Peptide 200.3 H <100.0 PG/ML Total Protein 7.1 6.4-8.2 GM/DL Albumin 3.7 3.2-4.5 GM/DL Lipase 10 8-78 U/L A/P-Cardiology Assessment/Admission Diagnosis 1. Atrial fibrillation with rapid ventricular rate. This is a new diagnosis for him. Start IV diltiazem for rate control. Start anticoagulation with apixaban 5 mg p.o. twice a day. Transthoracic echo in a.m. once ventricular response rate better controlled. 2. History of coronary artery disease. Inferior wall STEMI in early Aug 2017 (he presented on 09/01/17 with symptoms of approx 72 hours duration). This was treated with primary balloon angioplasty. Multivessel coronary stenting in September 2018. The patient is on long-term aspirin and clopidogrel. In view of anticoagulation being started, we will discontinue clopidogrel. 3. Chronic marijuana use 4. Previous tobacco use. He quit 2005 5. COPD, by history. Abnormal CT scan of the chest, concerning for mucous plugging. Pulmonary nodules. Further work-up as per ICU service 6. H/O R hip surg several years ago 7. Hypertension. Will follow 8. Chronic pain syndrome treated with narcotic analgesics by his pcp [place] MD Apr 23, 2023 15:47
[2023-04-23] MEDS: meTOprolol TARTRATE 25 MG (LOPRESSOR) TABLET PO SCH ×2 (16:56→21:31)
[2023-04-23] MEDS: RT-ALBUTEROL/IPRATROPIUM 3 ML (DUONEB) VIAL INH SCH (19:28)
[2023-04-23] MEDS: DOCUSATE SODIUM 100 MG (COLACE) CAP PO SCH (21:31)
[2023-04-23] MEDS: SENNOSIDES 8.6 MG (SENOKOT) TAB PO SCH (21:31)
[2023-04-23] MEDS: APIXABAN 5 MG (ELIQUIS) TABLET PO SCH (21:31)
[2023-04-24] MEDS: RT-ALBUTEROL/IPRATROPIUM 3 ML (DUONEB) VIAL INH SCH ×3 (03:07→14:34)
[2023-04-24 05:16] LABS: BASOPHILS # (AUTO) 0.1 10^3/uL (0.0-0.1); BASOPHILS % (AUTO) 1 % (0-10); EOSINOPHILS # (AUTO) 0.3 10^3/uL (0.0-0.3); EOSINOPHILS % (AUTO) 2 % (0-10); HEMATOCRIT 40 % (40-54); HEMOGLOBIN 12.7 g/dL (13.3-17.7); LYMPHOCYTES # (AUTO) 2.1 10^3/uL (1.0-4.0); LYMPHOCYTES % (AUTO) 15 % (12-44); MEAN CORPUSCULAR HEMOGLOBIN 29 pg (25-34); MEAN CORPUSCULAR HGB CONC 32 g/dL (32-36); MEAN CORPUSCULAR VOLUME 89 fL (80-99); MEAN PLATELET VOLUME 9.1 fL (9.0-12.2); MONOCYTES # (AUTO) 1.1 10^3/uL (0.0-1.0); MONOCYTES % (AUTO) 8 % (0-12); NEUTROPHILS # (AUTO) 9.8 10^3/uL (1.8-7.8); NEUTROPHILS % (AUTO) 74 % (42-75); PLATELET COUNT 255 10^3/uL (130-400); WHITE BLOOD COUNT 13.3 10^3/uL (4.3-11.0)
[2023-04-24 05:24] LABS: ALBUMIN 3.4 GM/DL (3.2-4.5); BILIRUBIN,TOTAL 0.2 MG/DL (0.1-1.0); CALCIUM 8.6 MG/DL (8.5-10.1); CREATININE SERUM 0.97 MG/DL (0.60-1.30); MAGNESIUM 1.7 MG/DL (1.6-2.4); PHOSPHORUS 3.3 MG/DL (2.3-4.7); POTASSIUM 4.4 MMOL/L (3.6-5.0); TOTAL PROTEIN 6.6 GM/DL (6.4-8.2)
--- NOTE | 2023-04-24 05:57 | Short Stay Summary-Hospitalist ---
History of Present Illness HPI/Chief Complaint Chief complaint: Atrial fibrillation with RVR new onset HPI: This is a 77-year-old male clinic patient of [facility] who has a past medical history of COPD who presented to the ER with palpitations found to have new onset atrial fibrillation with RVR. Cardizem drip was maintained and he converted to normal sinus rhythm this morning at 0745. Currently he is doing well. Updated patient on the plan. Await cardiology for plan. Source: patient Exam Limitations: no limitations Date Seen 04/24/23 Time Seen by a Provider: 11:00 Attending Physician [place] PCP Admitting Physician: Arielle Toth DO Attending Physician: Arielle Toth DO Referring Physician Date of Admission Apr 23, 2023 at 14:33 Home Medications & Allergies Home Medications Reviewed patient Home Medication Reconciliation performed by pharmacy medication reconciliations collection systems technician and/or nursing. Patients Allergies have been reviewed. Allergies Allergies Coded Allergies No Known Drug Allergies (Unverified03/03/09) Past Vhzwjqn-Rysuci-Wuzmhe Hx Patient Social History Marrital Status: single Employed/Student: retired Tobacco Use?: No Smoking Status: Former Smoker Use of E-Cig and/or Vaping dev: No Substance use?: Yes Substance type: Methamphetamine, Marijuana Additional substance use comme: RECENT THC USE, QUIT METH AROUND 2012 PER PT Substance frequency: Daily Alcohol Use?: No Pt feels they are or have been: No Immunizations Up To Date Date of Influenza Vaccine: Sep 24, 2017 First/Initial COVID19 Vaccinat: X'2 Second COVID19 Vaccination Markos: X'S 2 Tetanus Booster (TDap): Unknown Seasonal Allergies Seasonal Allergies: No Current Status Advance Directives: No Communicates: Verbally Primary Language: Polish Preferred Spoken Language: Polish Is interpretation needed?: No Implanted or Applied Medical D: Orthopedic hardware, Stents Past Medical History Surgeries: Abdominal, Orthopedic COPD Currently Using CPAP: No Currently Using BIPAP: No Hypertension Abdominal Hernia, Hiatal Hernia Arthritis Blood Disorders: No Adverse Reaction/Blood Tranf: No Family Medical History No Pertinent Family Hx Review of Systems Constitutional: see HPI Cardiovascular: palpitations Physical Exam Physical Exam Vital Signs Vital Signs - First Documented Capillary Refill : Less Than 3 Seconds Height, Weight, BMI Height: 5'8.00" Weight: 125lbs. 0.0oz. [id number]; 19.90 BMI Method: General Appearance: No Apparent Distress, WD/WN, Chronically ill, Thin HEENT: PERRL/EOMI, TMs Normal, Normal ENT Inspection, Pharynx Normal Neck: Full Range of Motion, Normal Inspection, Non Tender, Supple Respiratory: Chest Non Tender, Lungs Clear, Normal Breath Sounds, No Accessory Muscle Use, No Respiratory Distress, Decreased Breath Sounds Cardiovascular: Regular Rate, Rhythm, No JVD, No Murmur Gastrointestinal: Normal Bowel Sounds, No Organomegaly, No Pulsatile Mass, Non Tender Extremity: Normal Capillary Refill, Normal Inspection, Normal Range of Motion, No Pedal Edema; No Swelling Neurologic/Psychiatric: Alert, Oriented x3, No Motor/Sensory Deficits, Normal Mood/Affect, engineering professor II-XII Norm as Tested Skin: Normal Color, Warm/Dry Results Results/Procedures Labs Laboratory Tests 04/23/23 11:30 04/24/23 04:51 Patient resulted labs reviewed. Short Stay Diagnosis Discharge Diagnosis-Short Stay Admission Diagnosis New onset atrial fibrillation with RVR Final Discharge Diagnosis New onset atrial fibrillation with RVR Hypertension COPD Former smoker CAD Conclusion Plan Supportive care Discharge home on anticoagulation and metoprolol ARIELLE TOTH DO Apr 24, 2023 05:57
[2023-04-24] MEDS: MAGNESIUM 1 GM/100 ML IVPB 100 ML IV SCH ×4 (05:59→10:40)
[2023-04-24] MEDS ORDERED: KCL 20 MEQ TAB (K-DUR) PO SCH (06:00)
[2023-04-24] MEDS ORDERED: POTASSIUM CL 10MEQ/50ML IVPB 50 ML IV SCH (06:00)
[2023-04-24 06:49] VITALS: BP 146/96
[2023-04-24] MEDS: dilTIAZem DRIP PRE-MIX 125 ML IV SCH (06:49)
[2023-04-24] MEDS: APIXABAN 5 MG (ELIQUIS) TABLET PO SCH (09:02)
[2023-04-24] MEDS: meTOprolol TARTRATE 25 MG (LOPRESSOR) TABLET PO SCH (09:02)
[2023-04-24] MEDS: DOCUSATE SODIUM 100 MG (COLACE) CAP PO SCH (09:03)
[2023-04-24] MEDS: SENNOSIDES 8.6 MG (SENOKOT) TAB PO SCH (09:03)
[2023-04-24] MEDS ORDERED: LISI40TA9 PO (10:09)
[2023-04-24] MEDS ORDERED: LACT1CAP61 PO (10:09)
[2023-04-24] MEDS ORDERED: IBUP-2185 PO (10:09)
[2023-04-24] MEDS ORDERED: MULT-1136 PO (10:09)
[2023-04-24] MEDS ORDERED: FLUTICASONE NASAL SPRAY (FLONASE) 16 GM BTL NS PRN (12:00)
[2023-04-24] MEDS ORDERED: RT-ALBUTEROL SULF 2.5 MG/3 ML PRE-MIX VIAL IH PRN (12:00)
--- NOTE | 2023-04-24 12:19 | Tele-ICU Progress Note ---
Subjective Date Seen by a Provider: Apr 24, 2023 Subjective/Events-last exam (Tele-ICU Physician , Progress Note ) Service provided via interactive audio and video telecommunications E-CARE system to a patient admitted to ICU bed in [facility]. Patient is seen today due to persistent need of ICU care Available chart/ vitals / labs / Images reviewed Video assessment done using teleICU camera, rest of exam as per RN Discussed with RN Events overnight : Afebrile hemodynamically stable Respiratory - ra I/O = Drips: card gtt Pressors- no Hospital course: (04/23) 77M Admitted with Afib RVR A/P NE a fib , RVR - cardisemn ftt -AC - cards to follow CAD-Inferior wall STEMI in early Aug 2017 ( - Multivessel coronary stenting in September 2018 RLL nodyle - as per images- was f/up as outpatient with CT /PET - to cont as per bedside MDs VTE Prophylaxis: + Stress Ulcer Prophylaxis: Plans in collaboration with bedside consultants and IM MDs. Discussed with RN to reach out if any questions or concerns Case and care daily discussed on multidisciplinary rounds ( RN, PharmD, Auto Former Machine Operator , Respiratory Therapy, workers' compensation hearings officer ) A total of 10 minutes of critical care time was devoted to this patient today, required to treat and/or prevent further deterioration of critical care condition ( as above ) . I am remotely monitoring this patient from another state. I am unable to do the bedside exam, and history/physical and pertinent information is taken from other notes in the computer and bedside staff. Sepsis Event Evaluation Height, Weight, BMI Height: 5'8.00" Weight: 125lbs. 0.0oz. 56.212083ep; 19.90 BMI Method: Exam Exam Patient acknowledged, consented, and participated in this virtual visit which was conducted using real time audio/video Vital Signs Date Time Temp Pulse Resp B/P (MAP) Pulse Ox O2 Delivery O2 Flow Rate FiO2 04/24/23 11:16 36.5 04/24/23 11:00 60 37 123/81 (95) 95 Room Air 04/24/23 10:15 58 29 127/81 (96) 96 Room Air 04/24/23 10:00 63 34 95 Room Air 04/24/23 09:00 73 31 127/72 (90) 93 Room Air 04/24/23 08:00 99 Room Air 04/24/23 08:00 79 28 146/80 (102) 95 Room Air 04/24/23 08:00 36.6 04/24/23 07:46 79 04/24/23 07:15 96 Room Air 04/24/23 07:04 79 04/24/23 07:00 84 20 129/101 (110) 95 Room Air 04/24/23 06:49 89 146/96 04/24/23 06:00 85 21 139/96 (110) 94 Room Air 04/24/23 05:00 90 34 131/103 (112) 93 Room Air 04/24/23 04:00 79 22 119/78 (92) 94 Room Air 04/24/23 04:00 98 Room Air 04/24/23 03:49 36.6 04/24/23 03:07 96 Room Air 04/24/23 03:00 63 24 121/91 (101) 94 Room Air 04/24/23 02:00 75 20 131/86 (101) 93 Room Air 04/24/23 01:00 72 04/24/23 01:00 72 24 125/78 (94) 94 Room Air 04/24/23 00:15 77 17 115/86 (96) 93 Room Air 04/24/23 00:03 36.3 04/24/23 00:00 94 Room Air 04/23/23 23:00 65 25 93 Room Air 04/23/23 22:00 59 25 101/78 (86) 95 Room Air 04/23/23 21:15 57 23 122/53 (76) 94 Room Air 04/23/23 20:00 62 29 118/69 (85) 96 Room Air 04/23/23 20:00 96 Room Air 04/23/23 19:44 36.3 04/23/23 19:29 95 Room Air 04/23/23 19:00 52 04/23/23 19:00 52 30 114/66 (82) 98 Room Air 04/23/23 18:00 79 23 136/122 (127) 96 Room Air 04/23/23 17:00 125 29 153/100 (117) 95 Room Air 04/23/23 16:40 95 Room Air 04/23/23 16:00 140 24 152/120 (131) 96 Room Air 04/23/23 15:50 36.3 04/23/23 15:45 135 20 141/110 (120) 90 Room Air 04/23/23 15:30 135 37 183/96 (125) 90 Room Air 04/23/23 15:17 118 159/112 04/23/23 15:15 123 27 154/109 (124) 97 Room Air 04/23/23 15:10 36.5 118 96 04/23/23 15:00 126 24 153/125 (134) 97 Room Air 04/23/23 14:45 118 04/23/23 14:38 91 Room Air 04/23/23 14:38 36.1 04/23/23 14:35 36.5 106 20 159/112 96 Room Air 04/23/23 14:30 117 18 159/128 (138) 97 Room Air I & O 04/24/23 07:00 Intake Total 2150 ml Output Total 500 ml Balance 1650 ml Height & Weight Height: 5'8.00" Weight: 125lbs. 0.0oz. 56.147747lu; 19.90 BMI Method: General Appearance: No Apparent Distress, WD/WN HEENT: PERRL/EOMI, TMs Normal, Normal ENT Inspection, Pharynx Normal Neck: Full Range of Motion, Normal Inspection, Non Tender, Supple Respiratory: Chest Non Tender, Lungs Clear, Normal Breath Sounds, No Accessory Muscle Use, No Respiratory Distress, Decreased Breath Sounds Cardiovascular: No JVD, No Murmur, Irregularly Irregular, Tachycardia Capillary Refill: Less Than 3 Seconds Gastrointestinal: normal bowel sounds, non tender, soft Extremity: Normal Capillary Refill, Normal Inspection, Normal Range of Motion, No Pedal Edema; No Swelling Neurologic/Psychiatric: Alert, Oriented x3, No Motor/Sensory Deficits, Normal Mood/Affect, window cutter II-XII Norm as Tested Skin: Normal Color, Warm/Dry Results Lab Laboratory Tests 04/23/23 11:30 04/24/23 04:51 Assessment/Plan Assessment/Plan 1 [place]NA COX MD Apr 24, 2023 12:19
--- NOTE | 2023-04-24 14:48 | Cardiology Progress Note ---
Subjective Time Seen by Provider: 16:00 Subjective/Events-last exam The patient is a pleasant 77-year-old gentleman, chronically short of breath who was incidentally noted to have a rapid pulse rate and subsequently referred to this hospital's emergency room. Here he was noted to be in atrial fibrillation with rapid ventricular rate, in the 130s to 140s. The patient is chronically short of breath and does not feel that this has worsened recently. He denies chest pain, fever, sputum production. EKG showed atrial fibrillation with rapid ventricular rate. Ventricular response rate improved with IV diltiazem but he subsequently lost his IV. He has now received a new IV and is awaiting initiation of IV diltiazem drip. Past medical history significant for inferior wall ST elevation myocardial infarction in August 2017 at which time balloon angioplasty of his right coronary artery was performed, followed by multiple coronary stents in September 2017. Last transthoracic echo in 2018 shows a normal left ventricular ejection fraction. Patient comfortable. Denies chest pain or shortness of breath. Telemetry reviewed. Patient back to normal sinus rhythm with PACs Transthoracic echo 04/23/2023 Normal left ventricular ejection fraction 55 to 60% Mild left atrial enlargement No pericardial effusion Normal IVC No advanced valvular dysfunction CT scan of the chest 04/23/2023 IMPRESSION: 1. Negative for PE. 2. 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 3. New smaller nodules have developed in both lower lobes. These warrant a short-term CT follow-up to exclude neoplasm but are more likely on an infectious basis as well. Repeat chest CT, would not require IV contrast, in 2-3 months' time suggested. 4. Chronic emphysematous changes and paraseptal cyst progressed from prior. 5. No lymphadenopathy or chest effusion. Review of Systems As mentioned in history of present illness Exam Vital Signs Vital Signs Date Time Temp Pulse Resp B/P (MAP) Pulse Ox O2 Delivery O2 Flow Rate FiO2 04/24/23 14:34 97 Room Air 04/24/23 13:30 68 18 129/107 (114) 04/24/23 11:16 36.5 S1 and S2 regular. No murmur S3 or S4 Chest clear to auscultation No lower extremity edema Neurological examination nonfocal Labs Laboratory Tests Test 6/28/23 04:51 Range/Units White Blood Count 13.3 H 4.3-11.0 10^3/uL Red Blood Count 4.46 4.30-5.52 10^6/uL Hemoglobin 12.7 L 13.3-17.7 g/dL Hematocrit 40 40-54 % Mean Corpuscular Volume 89 80-99 fL Mean Corpuscular Hemoglobin 29 25-34 pg Mean Corpuscular Hemoglobin Concent 32 32-36 g/dL Red Cell Distribution Width 13.6 10.0-14.5 % Platelet Count 255 130-400 10^3/uL Mean Platelet Volume 9.1 9.0-12.2 fL Immature Granulocyte % (Auto) 1 % Neutrophils (%) (Auto) 74 42-75 % Lymphocytes (%) (Auto) 15 12-44 % Monocytes (%) (Auto) 8 0-12 % Eosinophils (%) (Auto) 2 0-10 % Basophils (%) (Auto) 1 0-10 % Neutrophils # (Auto) 9.8 H 1.8-7.8 10^3/uL Lymphocytes # (Auto) 2.1 1.0-4.0 10^3/uL Monocytes # (Auto) 1.1 H 0.0-1.0 10^3/uL Eosinophils # (Auto) 0.3 0.0-0.3 10^3/uL Basophils # (Auto) 0.1 0.0-0.1 10^3/uL Immature Granulocyte # (Auto) 0.1 0.0-0.1 10^3/uL Sodium Level 136 135-145 MMOL/L Potassium Level 4.4 3.6-5.0 MMOL/L Chloride Level 106 98-107 MMOL/L Carbon Dioxide Level 23 21-32 MMOL/L Anion Gap 7 5-14 MMOL/L Blood Urea Nitrogen 23 H 7-18 MG/DL Creatinine 0.97 0.60-1.30 MG/DL Estimat Glomerular Filtration Rate 81 BUN/Creatinine Ratio 24 Glucose Level 109 H 70-105 MG/DL Calcium Level 8.6 8.5-10.1 MG/DL Corrected Calcium 9.1 8.5-10.1 MG/DL Phosphorus Level 3.3 2.3-4.7 MG/DL Magnesium Level 1.7 1.6-2.4 MG/DL Total Bilirubin 0.2 0.1-1.0 MG/DL Aspartate Amino Transf (AST/SGOT) 17 5-34 U/L Alanine Aminotransferase (ALT/SGPT) 16 0-55 U/L Alkaline Phosphatase 87 40-136 U/L Total Protein 6.6 6.4-8.2 GM/DL Albumin 3.4 3.2-4.5 GM/DL A/P-Cardiology Assessment/Plan 1. Atrial fibrillation with rapid ventricular rate. This is a new diagnosis for him. He has now reverted to normal sinus rhythm, with PACs noted on telemetry strip. Discontinue IV diltiazem for rate control. Start metoprolol 25 mg p.o. twice a day. He has been started on anticoagulation with apixaban 5 mg p.o. twice a day. Clopidogrel being discontinued. Transthoracic echo shows sinus rhythm, mild left atrial enlargement and a normal left ventricular ejection fraction. No advanced valvular dysfunction noted.. 2. History of coronary artery disease. Inferior wall STEMI in early Aug 2017 (he presented on 09/01/17 with symptoms of approx 72 hours duration). This was treated with primary balloon angioplasty. Multivessel coronary stenting in September 2018. The patient is on long-term aspirin and clopidogrel. In view of anticoagulation being started, we will discontinue clopidogrel. Continue aspirin 81 mg daily 3. Chronic marijuana use 4. Previous tobacco use. He quit 2005 5. COPD, by history. Abnormal CT scan of the chest, concerning for mucous plugging. Pulmonary nodules. Further work-up as per ICU service. He has an appointment at [facility] upon discharge for 04/25/2023 6. H/O R hip surg several years ago 7. Hypertension. Will follow 8. Chronic pain syndrome treated with narcotic analgesics by his pcp Okay for discharge home from cardiology standpoint. Outpatient follow-up with cardiology in 6 to 8 weeks [place] MD Apr 24, 2023 14:47
[2023-04-24] MEDS ORDERED: METO-333 PO (15:58)
[2023-04-24] MEDS ORDERED: APIX5TAB PO (15:58)
[2023-04-24] MEDS ORDERED: lisINopril 40 MG (PRINIVIL) TABLET PO SCH (21:00)
[2023-04-24] MEDS ORDERED: ASPIRIN E.C. 81 MG (ECOTRIN) TAB PO SCH (21:00)
[2023-04-24] MEDS ORDERED: CLOPIDOGREL 75 MG (PLAVIX) TABLET PO SCH (21:00)
[2023-04-25] MEDS ORDERED: MULTIVIT W/MINERALS TAB (THERAGRAN M) PO SCH (07:00)
[2023-04-25] MEDS ORDERED: LACTOBACILLUS ACIDOPHILUS (PROBIOTIC) CAPSULE PO SCH (09:00)
[2023-04-25] MEDS ORDERED: NON-FORMULARY MEDICATION 1 EA EA (Multivitamin 1 EACH) PO SCH (09:00)
[2023-04-25] MEDS ORDERED: LACTOBACILLUS RHAMNOSUS R11 PO SCH (09:00)
== END 2023-04-24 16:15 | disposition home or self-care (01) ==
LOC: EDUNIT# 10:49 → ER 10:50 → UNDOADMOB 14:33 → ICU 14:33 → UNDODISOB 04-24 16:15
PROVIDERS: ADMIT Internal Medicine; ATTEND Internal Medicine
DX: I48.91 Unspecified atrial fibrillation (principal); I25.10 Atherosclerotic heart disease of native coronary artery without angina pectoris; I10 Essential (primary) hypertension; I21.3 ST elevation (STEMI) myocardial infarction of unspecified site; J44.9 Chronic obstructive pulmonary disease, unspecified; G89.29 Other chronic pain; R07.9 Chest pain, unspecified; F12.90 Cannabis use, unspecified, uncomplicated; Z95.5 Presence of coronary angioplasty implant and graft; Z98.890 Other specified postprocedural states; Z79.82 Long term (current) use of aspirin; Z87.891 Personal history of nicotine dependence; Z79.01 Long term (current) use of anticoagulants
CPT/HCPCS: 71045; 71275; 80053 ×2; 83690; 83735 ×2; 83874; 83880; 84100; 84484; 85025 ×2; 85379; 85610; 85730; 87081; 93005 ×2; 93041; 94640 ×2; 96366 ×2; 96375; 99284; C8929; G0378; 36415; 93306

== ENCOUNTER 2023-04-28 17:15 | Emergency (ER) | payer MEDICAID ==
[~2023-04-28] VITALS: Ht 172 cm; Wt 58.9 kg
[~2023-04-28 17:15] MED LIST changes: +APIX5TAB PO; +IBUP-2185 PO; +LACT1CAP61 PO; +LISI40TA9 PO; +METO-333 PO; +MULT-1136 PO
[2023-04-28] MEDS ORDERED: meTOprolol 5 MG/5 ML (LOPRESSOR) VIAL IV ONE ×2 (17:30→18:15)
[2023-04-28] MEDS ORDERED: ASPIRIN 81 MG CHEW (CHILDREN'S ASA) PO ONE (17:30)
--- NOTE | 2023-04-28 17:35 | ED Cardiac General ---
History of Present Illness General Chief Complaint: Cardiac/General Problems Stated Complaint: NOT FEELING WELL Nursing Triage Note: PT TO [facility] 3 WITH CC OF A FIB WITH RVR, WAS JUST HERE RECENTLY WITH THE SAME. Source: patient Exam Limitations: no limitations (LILA NIETO MD) History of Present Illness Date Seen by Provider: Apr 28, 2023 Time Seen by Provider: 17:17 Initial Comments Here with report of fast heart rate. States that it came on today. Denies any significant chest pain but then states he may have had a little chest discomfort earlier that only lasted a few seconds and then resolved. Has known A-fib with RVR and was admitted earlier this week for the same. He was initiated on diltiazem and then subsequently changed to metoprolol per inpatient cardiology notes. He tolerated that well. [place] the palpitations today and decided to come back for reevaluation. He is on Eliquis and states that he is taking that as directed. His metoprolol dose is 25 mg p.o. twice daily. He does follow with Dr Tanner. Denies other constitutional or cardiac symptoms otherwise. Timing/Duration: 4-6 hours Severity: mild Location: central Activities at Onset: none Prior CP/Workup: cardiac cath, echocardiography, stress test Modifying Factors: improves with rest NTG SL DEFENSE ATTORNEY: No ASA po DEFENSE ATTORNEY: Yes Associated Systoms: Chest Pain; No Cough, No Fever/Chills, No Headaches, No Malaise, No Shortness of Air, No Weakness (LILA NIETO MD) Allergies and Home Medications Allergies Coded Allergies: No Known Drug Allergies (Unverified , 03/03/09) Patient Home Medication List Home Medication List Reviewed: Yes (LILA NIETO MD) Albuterol Sulfate (Proventil Hfa) 6.7 Gm Hfa.aer.ad, 2 PUFF IH Q4H PRN for SHORTNESS OF BREATH, (Reported) Entered as Reported by: JAIR HORNER on 09/01/17 1154 Apixaban (Eliquis) 5 Mg Tablet, 5 MG PO BID Prescribed by: LOR LIMON on 04/24/23 1558 Aspirin (Aspirin EC) 81 Mg Tablet.dr, 81 MG PO HS, (Reported) Entered as Reported by: AMY TELLES on 10/24/17 0753 Atorvastatin Calcium (Atorvastatin Calcium) 80 Mg Tablet, 80 MG PO HS, (Reported) Entered as Reported by: AMY TELLES on 10/24/17 0753 Fluticasone Propionate (Fluticasone Propionate) 50 Mcg/Actuation [place].susp, 1-2 SPRAY NSEACH DAILY PRN for CONGESTION, (Reported) Entered as Reported by: JAIR HORNER on 09/01/17 1154 Ibuprofen (Ibuprofen) 200 Mg Capsule, 400-800 MG PO Q8H PRN for PAIN-MILD (1-4), (Reported) Entered as Reported by: PAUL STONE on 04/24/23 1009 Lactobacillus Rhamnosus R0011 (Probiotic Digestive Care) 20 Billion Cell Capsule, 1 EACH PO DAILY, (Reported) Entered as Reported by: PAUL STONE on 04/24/23 1009 Lisinopril (Lisinopril) 40 Mg Tablet, 40 MG PO HS, (Reported) Entered as Reported by: PAUL STONE on 04/24/23 100 Metoprolol Tartrate (Metoprolol Tartrate) 25 Mg Tablet, 25 MG PO BID Prescribed by: LOR LIMON on 04/24/23 1558 Multivitamin (Multivitamin) 1 Each Tablet, 1 EACH PO DAILY, (Reported) Entered as Reported by: PAUL STONE on 04/24/23 1009 Discontinued Medications Clopidogrel Bisulfate (Plavix) 75 Mg Tablet, 75 MG PO HS, (Reported) Entered as Reported by: AMY TELLES on 10/24/17 075 Hydrocodone/Ibuprofen (Hydrocodone-Ibuprofen 7.5-200) 1 Each Tablet, 1 TAB PO QID PRN for PAIN-MODERATE, (Reported) Discontinued Reason: No Longer Taking Entered as Reported by: JAIR HORNER on 09/01/17 1154 Lisinopril (Lisinopril) 10 Mg Tablet, 20 MG PO DAILY, (Reported) Discontinued Reason: No Longer Taking Entered as Reported by: AMY TELLES on 10/24/17 0753 Metoprolol Succinate (Metoprolol Succinate) 25 Mg Tab.er.24h, 25 MG PO DAILY Discontinued Reason: No Longer Taking Prescribed by: KIKO LOYA on 10/25/17 1005 Oxybutynin Chloride (Oxybutynin Chloride ER) 10 Mg Tab.er.24, 10 MG PO DAILY, (Reported) Discontinued Reason: No Longer Taking Entered as Reported by: JAIR HORNER on 09/01/17 2872 Review of Systems Review of Systems Constitutional: see HPI; No chills, No fever EENTM: No Nose Congestion, No Throat Pain Respiratory: Denies Cough, Denies Shortness of Air Cardiovascular: See HPI, Irregular Heart Rate, Palpitations Gastrointestinal: Denies Nausea, Denies Vomiting Genitourinary: No Symptoms Reported Musculoskeletal: no symptoms reported Skin: no symptoms reported (LILA NIETO MD) Past Ysnyhwg-Fmcgum-Qrqlhc Hx Patient Social History Tobacco Use?: No Smoking Status: Former Smoker Use of E-Cig and/or Vaping dev: No Substance use?: No Substance type: Marijuana (Quit recently) Alcohol Use?: No (LILA NIETO MD) Immunizations Up To Date First/Initial COVID19 Vaccinat: X'2 Second COVID19 Vaccination Markos: X'S 2 Third COVID19 Vaccination Date: X (LILA NIETO MD) Seasonal Allergies Seasonal Allergies: No (LILA NIETO MD) Past Medical History Surgery/Hospitalization HX: HX-HTN, A FIB SURG.- [facility] Surgeries: Yes Abdominal, Orthopedic Respiratory: No COPD Currently Using CPAP: No Currently Using BIPAP: No Cardiac: Yes Hypertension Neurological: No Genitourinary: No Gastrointestinal: Yes Abdominal Hernia, Hiatal Hernia Musculoskeletal: Yes Arthritis Endocrine: No HEENT: No Cancer: No Psychosocial: No Integumentary: No Blood Disorders: No Adverse Reaction/Blood Tranf: No (LILA NIETO MD) Family Medical History Reviewed Nursing Family Hx (LILA NIETO MD) No Pertinent Family Hx (LILA NIETO MD) Physical Exam Vital Signs Vital Signs - First Documented (LANI GUZMAN MD) Vital Signs Capillary Refill : Less Than 3 Seconds (LILA NIETO MD) Height, Weight, BMI Height: 5'8.00" Weight: 125lbs. 0.0oz. 56.356367ut; 19.00 BMI Method: General Appearance: No Apparent Distress, WD/WN HEENT: PERRL/EOMI, Other (Mucous membranes dry) Neck: Non Tender, Supple Respiratory: Lungs Clear, Normal Breath Sounds Cardiovascular: No Murmur, Irregularly Irregular, Tachycardia Gastrointestinal: Non Tender, Soft Extremity: Normal Range of Motion, Non Tender Neurologic/Psychiatric: Alert, Oriented x3 Skin: Normal Color, Warm/Dry (LILA NIETO MD) Progress/Results/Core Measures Results/Orders Lab Results Laboratory Tests Test 04/28/23 17:21 Range/Units White Blood Count 11.4 H 4.3-11.0 10^3/uL Red Blood Count 4.25 L 4.30-5.52 10^6/uL Hemoglobin 12.3 L 13.3-17.7 g/dL Hematocrit 38 L 40-54 % Mean Corpuscular Volume 89 80-99 fL Mean Corpuscular Hemoglobin 29 25-34 pg Mean Corpuscular Hemoglobin Concent 32 32-36 g/dL Red Cell Distribution Width 13.7 10.0-14.5 % Platelet Count 296 130-400 10^3/uL Mean Platelet Volume 9.3 9.0-12.2 fL Immature Granulocyte % (Auto) 1 % Neutrophils (%) (Auto) 73 42-75 % Lymphocytes (%) (Auto) 13 12-44 % Monocytes (%) (Auto) 11 0-12 % Eosinophils (%) (Auto) 2 0-10 % Basophils (%) (Auto) 0 0-10 % Neutrophils # (Auto) 8.3 H 1.8-7.8 10^3/uL Lymphocytes # (Auto) 1.5 1.0-4.0 10^3/uL Monocytes # (Auto) 1.2 H 0.0-1.0 10^3/uL Eosinophils # (Auto) 0.2 0.0-0.3 10^3/uL Basophils # (Auto) 0.1 0.0-0.1 10^3/uL Immature Granulocyte # (Auto) 0.1 0.0-0.1 10^3/uL Prothrombin Time 14.1 12.2-14.7 SEC INR Comment 1.1 0.8-1.4 Activated Partial Thromboplast Time 45 H 24-35 SEC Sodium Level 135 135-145 MMOL/L Potassium Level 4.4 3.6-5.0 MMOL/L Chloride Level 106 98-107 MMOL/L Carbon Dioxide Level 20 L 21-32 MMOL/L Anion Gap 9 5-14 MMOL/L Blood Urea Nitrogen 17 7-18 MG/DL Creatinine 0.93 0.60-1.30 MG/DL Estimat Glomerular Filtration Rate 86 BUN/Creatinine Ratio 18 Glucose Level 109 H 70-105 MG/DL Calcium Level 8.5 8.5-10.1 MG/DL Corrected Calcium 9.1 8.5-10.1 MG/DL Magnesium Level 1.8 1.6-2.4 MG/DL Total Bilirubin 0.2 0.1-1.0 MG/DL Aspartate Amino Transf (AST/SGOT) 23 5-34 U/L Alanine Aminotransferase (ALT/SGPT) 18 0-55 U/L Alkaline Phosphatase 81 40-136 U/L Myoglobin 31.6 10.0-92.0 NG/ML Troponin I < 0.028 <0.028 NG/ML Total Protein 6.5 6.4-8.2 GM/DL Albumin 3.3 3.2-4.5 GM/DL (LANI GUZMAN MD) Medications Given in ED Current Medications Medications Dose Ordered Sig/Camilo Route Start Time Stop Time Status Last Admin Dose Admin Aspirin 324 mg ONCE ONCE PO 04/28/23 17:30 04/28/23 17:31 DC 04/28/23 17:33 324 MG Metoprolol Tartrate 5 mg ONCE ONCE IV 04/28/23 17:30 04/28/23 17:31 DC 04/28/23 17:30 5 MG Metoprolol Tartrate 5 mg ONCE ONCE IV 04/28/23 18:15 04/28/23 18:16 DC 04/28/23 18:21 5 MG Metoprolol Tartrate 50 mg ONCE ONCE PO 04/28/23 17:45 04/28/23 17:46 DC 04/28/23 17:46 50 MG (LANI GUZMAN MD) Vital Signs/I&O 04/28/23 04/28/23 17:18 17:18 Temp 35.8 Pulse 129 Resp 20 B/P (MAP) 128/ Pulse Ox 95 100 O2 Delivery Nasal Cannula Nasal Cannula O2 Flow Rate 215.00 2.00 (LANI GUZMAN MD) Progress Progress Note : Progress Note Seen and evaluated. IV by EMS. Normal saline initiated by EMS 1 L and we will complete that bolus. We will go ahead and initiate chest pain protocol with EKG, labs including CBC, CMP, troponin and myoglobin and get chest x-ray. Heart rate is 100-1 20. Blood pressure 160s systolic. I do believe he will respond with metoprolol as he has recently. I will give Lopressor 5 mg IV and then give metoprolol 50 mg p.o. I did discuss this with Dr Tanner, patient's primary director of corporate strategy who is on-call today. He is in agreement with that plan. If we can get adequate rate control with this then discharge is reasonable if there is no other significant findings. Monitor patient. Echo done 04/24/23 results reviewed and shows EF of 55 to 65% without significant wall motion abnormalities. Differential diagnosis includes atrial fibrillation with rapid ventricular rate, cardiac event, dehydration, electrolyte abnormality. (LILA NIETO MD) Progress Note : Time: 19:19 Progress Note Care of this patient was assumed from Dr. Nieto at shift change. He had received 2 doses of Lopressor IV. He had excellent response and is now having a heart rate around 100. Oxygen saturation was in the high 90s to 100% on room air. He was not in any distress. He did report subjectively feeling improved. He has been instructed to increase his metoprolol to 50 mg twice daily. I made notation on his pill bottle. I have some concern that this may worsen his COPD. Increased albuterol use may then cause an increase in the heart rate. I have instructed him to update Dr. Tanner with how he is tolerating the increase in metoprolol. If not tolerated well, he may need to change to another medication such as diltiazem. As of now, he seems to be tolerating beta-blockers without problem. Labs were reviewed and interpreted in their entirety by me. CBC demonstrated only slight abnormalities with WBC of 11.4 and hemoglobin slightly low at 12.3. CMP, magnesium, coags, and troponin were all unremarkable. Radiologist's report of the chest x-ray was reviewed. There were persistent streaky opacities, but patient is not exhibiting any other signs of infection at this time. He is being discharged in stable and improved condition. See discharge instructions for further discussion. (LANI GUZMAN MD) Initial ECG Impression Date: Apr 28, 2023 Initial ECG Impression Time: 17:25 Initial ECG Rate: 120 Initial ECG Rhythm: A Fib/Flutter Initial ECG Impression: Atrial Fibrillation w/RVR Comment Atrial fibrillation with rapid ventricular response with normal axis. No evidence of ST elevation AL. Interpreted by me. (LILA NIETO MD) Diagnostic Imaging Diagonstic Imaging: Xray Plain Films/CT/US/NM/MRI: chest Comments NAME: ROXANNE RIVERA [facility] REC#: [id number] PT STATUS: REG ER : 1945 PHYSICIAN: LILA NIETO MD ADMIT DATE: 04/28/23/ER Signed Date of Exam:04/28/23 CHEST 1 VIEW, AP/PA ONLY EXAMINATION: Chest radiograph, portable AP view. DATE: 04/28/2023 5:44 PM INDICATION: 77-year-old male, chest pain. COMPARISON: April 23, 2023. FINDINGS: There is redemonstrated elevation of left hemidiaphragm. Heart size and mediastinal contours are grossly unchanged. The aorta appears enfolded and/or ectatic. There is no identified pneumothorax. There is no large pleural effusion. There are mild streaky opacities in the lung bases which appear essentially unchanged. There is end-stage left glenohumeral arthritis with intra-articular body in the axillary recess. IMPRESSION: Persistent and largely unchanged streaky opacities in the lung bases which may relate to atelectasis and/or infiltrate. Dictated by: Dictated on workstation # [id number] Dict: 04/28/231750 Trans: 04/28/231906 [id number] Interpreted by: SHAE WOOD MD Electronically signed by: SHAE WOOD MD 04/28/231906 (LANI GUZMAN MD) Departure Impression Primary Impression: Atrial fibrillation with RVR Additional Impressions: Palpitations COPD (chronic obstructive pulmonary disease) Qualified Codes: J44.9 - Chronic obstructive pulmonary disease, unspecified Disposition: 01 HOME, SELF-CARE Condition: Improved Departure-Patient Inst. Decision time for Depature: 19:16 (LANI GUZMAN MD) Referrals: [facility] (PCP/Family) Primary Care Physician Patient Instructions: Atrial fibrillation, Chronic obstructive pulmonary disease (COPD) Add. Discharge Instructions: Increase metoprolol to 50 mg twice daily. Metoprolol does have potential to possibly worsen COPD. If you find increasing your metoprolol dose worsen COPD and increases your need for inhalers, please discuss changing metoprolol to another medication such as diltiazem with Dr. Tanner. Please follow-up with Dr. Tanner and Dr. Irizarry as soon as possible. Please call on Saturday morning to make appointments. Return to the emergency room if you have worsening problems despite following these instructions. All discharge instructions reviewed with patient and/or family. Voiced understanding. Copy Copies To 1: KORY TANNER MD FACP [facility] CCDS Copies To 2: FLOR IRIZARRY MD, TIMOTHY D MD Apr 28, 2023 17:35 LANI GUZMAN MD Apr 28, 2023 19:22
[2023-04-28] MEDS ORDERED: meTOprolol TARTRATE 50 MG (LOPRESSOR) TAB PO ONE (17:45)
[2023-04-28 17:48] LABS: BASOPHILS # (AUTO) 0.1 10^3/uL (0.0-0.1); BASOPHILS % (AUTO) 0 % (0-10); EOSINOPHILS # (AUTO) 0.2 10^3/uL (0.0-0.3); EOSINOPHILS % (AUTO) 2 % (0-10); HEMATOCRIT 38 % (40-54); HEMOGLOBIN 12.3 g/dL (13.3-17.7); LYMPHOCYTES # (AUTO) 1.5 10^3/uL (1.0-4.0); LYMPHOCYTES % (AUTO) 13 % (12-44); MEAN CORPUSCULAR HEMOGLOBIN 29 pg (25-34); MEAN CORPUSCULAR HGB CONC 32 g/dL (32-36); MEAN CORPUSCULAR VOLUME 89 fL (80-99); MEAN PLATELET VOLUME 9.3 fL (9.0-12.2); MONOCYTES # (AUTO) 1.2 10^3/uL (0.0-1.0); MONOCYTES % (AUTO) 11 % (0-12); NEUTROPHILS # (AUTO) 8.3 10^3/uL (1.8-7.8); NEUTROPHILS % (AUTO) 73 % (42-75); PLATELET COUNT 296 10^3/uL (130-400); WHITE BLOOD COUNT 11.4 10^3/uL (4.3-11.0)
[2023-04-28 17:51] LABS: ALBUMIN 3.3 GM/DL (3.2-4.5); CHLORIDE 106 MMOL/L (98-107); POTASSIUM 4.4 MMOL/L (3.6-5.0); SODIUM 135 MMOL/L (135-145)
[2023-04-28 17:52] LABS: INR 1.1 (0.8-1.4); PROTHROMBIN TIME PATIENT 14.1 SEC (12.2-14.7)
[2023-04-28 17:53] LABS: CALCIUM 8.5 MG/DL (8.5-10.1)
[2023-04-28 17:54] LABS: GLUCOSE 109 MG/DL (70-105); TOTAL PROTEIN 6.5 GM/DL (6.4-8.2)
[2023-04-28 17:55] LABS: CARBON DIOXIDE 20 MMOL/L (21-32)
[2023-04-28 17:56] LABS: BILIRUBIN,TOTAL 0.2 MG/DL (0.1-1.0)
[2023-04-28 17:57] LABS: ALKALINE PHOSPHATASE 81 U/L (40-136); CREATININE SERUM 0.93 MG/DL (0.60-1.30); GFR ESTIMATED 86
[2023-04-28 17:58] LABS: BUN/CREATININE RATIO 18
[2023-04-28 18:00] LABS: ALANINE AMINOTRANSFERASE 18 U/L (0-55)
[2023-04-28 18:01] LABS: MAGNESIUM 1.8 MG/DL (1.6-2.4)
--- NOTE | 2023-04-28 18:02 | Diagnostic Imaging Report ---
EXAMINATION: Chest radiograph, portable AP view. DATE: 04/28/2023 5:44 PM INDICATION: 77-year-old male, chest pain. COMPARISON: April 23, 2023. FINDINGS: There is redemonstrated elevation of left hemidiaphragm. Heart size and mediastinal contours are grossly unchanged. The aorta appears enfolded and/or ectatic. There is no identified pneumothorax. There is no large pleural effusion. There are mild streaky opacities in the lung bases which appear essentially unchanged. There is end-stage left glenohumeral arthritis with intra-articular body in the axillary recess. IMPRESSION: Persistent and largely unchanged streaky opacities in the lung bases which may relate to atelectasis and/or infiltrate. Dictated by: Dictated on workstation # [id number]
[2023-04-28 19:28] VITALS: BP 120/61
== END 2023-04-28 19:28 | disposition home or self-care (01) ==
LOC: EDUNIT# 17:15 → ER 17:16
DX: I48.91 Unspecified atrial fibrillation (principal); I10 Essential (primary) hypertension; J44.9 Chronic obstructive pulmonary disease, unspecified; Z79.899 Other long term (current) drug therapy; Z87.891 Personal history of nicotine dependence; Z79.01 Long term (current) use of anticoagulants
CPT/HCPCS: 36415; 71045; 80053; 83735; 83874; 84484; 85025; 85610; 85730; 93005; 93041

== ENCOUNTER 2023-05-01 13:59 | Emergency (ER) | payer MEDICAID ==
[~2023-05-01] VITALS: Ht 172 cm; Wt 58.9 kg
--- NOTE | 2023-05-01 14:11 | ED Cardiac General ---
History of Present Illness General Chief Complaint: Cardiac/General Problems Stated Complaint: TACHYCARDIA Source: patient Exam Limitations: no limitations History of Present Illness Date Seen by Provider: May 01, 2023 Time Seen by Provider: 14:11 Initial Comments Patient is a 77-year-old male with a history of COPD, A-fib, coronary artery disease who presents the ED by EMS for shortness of breath, abnormal rhythm. Patient states around 12 he started not feeling good. Took his blood pressure which read high and had a heart rate over 100s. Described it as his heart "was skipping beats". Patient with shortness of breath with ambulation. Her shortness of breath improves while sitting. He states he has been feeling short of breath over the past few months. He reports a cough over the past few months as well. EMS states oxygen was 91 to 92% was placed on 2 L of oxygen. Does not wear oxygen at home. Denies of any specific chest pain, abdominal pain, vomiting, diarrhea, fever, chills. Patient has been seen twice over the past week for similar symptoms. Patient was admitted for A-fib with RVR. Currently on metoprolol 25 mg twice daily and Eliquis. Patient denies of any recent travel surgeries. Denies any leg swelling. Allergies and Home Medications Allergies Coded Allergies: No Known Drug Allergies (Unverified , 03/03/09) Patient Home Medication List Home Medication List Reviewed: Yes Albuterol Sulfate (Proventil Hfa) 6.7 Gm Hfa.aer.ad, 2 PUFF IH Q4H PRN for SHORTNESS OF BREATH, (Reported) Entered as Reported by: JAIR HORNER on 09/01/17 1154 Apixaban (Eliquis) 5 Mg Tablet, 5 MG PO BID Prescribed by: LOR LIMON on 04/24/23 1558 Aspirin (Aspirin EC) 81 Mg Tablet.dr, 81 MG PO HS, (Reported) Entered as Reported by: AMY TELLES on 10/24/17 0753 Atorvastatin Calcium (Atorvastatin Calcium) 80 Mg Tablet, 80 MG PO HS, (Reported) Entered as Reported by: AMY TELLES on 10/24/17 0753 Diltiazem HCl (Cardizem Cd) 180 Mg Cap.er.24h, 180 MG PO DAILY Prescribed by: BETTY ALEMAN on 05/01/23 1529 Doxycycline Monohydrate (Doxycycline Monohydrate) 100 Mg Tablet, 100 MG PO BID Prescribed by: BETTY ALEMAN on 05/01/23 1529 Fluticasone Propionate (Fluticasone Propionate) 50 Mcg/Actuation Alpha.susp, 1-2 SPRAY NSEACH DAILY PRN for CONGESTION, (Reported) Entered as Reported by: JAIR HORNER on 09/01/17 115 Furosemide (Lasix) 20 Mg Tablet, 20 MG PO DAILY Prescribed by: BETTY ALEMAN on 05/01/23 1529 Ibuprofen (Ibuprofen) 200 Mg Capsule, 400-800 MG PO Q8H PRN for PAIN-MILD (1-4), (Reported) Entered as Reported by: PAUL STONE on 04/24/23 1009 Lactobacillus Rhamnosus R0011 (Probiotic Digestive Care) 20 Billion Cell Capsule, 1 EACH PO DAILY, (Reported) Entered as Reported by: PAUL STONE on 04/24/23 1009 Lisinopril (Lisinopril) 40 Mg Tablet, 40 MG PO HS, (Reported) Entered as Reported by: PAUL STONE on 04/24/23 1009 Metoprolol Tartrate (Metoprolol Tartrate) 25 Mg Tablet, 25 MG PO BID Prescribed by: LOR LIMON on 04/24/23 1558 Multivitamin (Multivitamin) 1 Each Tablet, 1 EACH PO DAILY, (Reported) Entered as Reported by: PAUL STONE on 04/24/23 1009 Discontinued Medications Clopidogrel Bisulfate (Plavix) 75 Mg Tablet, 75 MG PO HS, (Reported) Entered as Reported by: AMY TELLES on 10/24/17 0753 Hydrocodone/Ibuprofen (Hydrocodone-Ibuprofen 7.5-200) 1 Each Tablet, 1 TAB PO QID PRN for PAIN-MODERATE, (Reported) Discontinued Reason: No Longer Taking Entered as Reported by: JAIR HORNER on 09/01/17 1154 Lisinopril (Lisinopril) 10 Mg Tablet, 20 MG PO DAILY, (Reported) Discontinued Reason: No Longer Taking Entered as Reported by: AMY TELLES on 10/24/17 0753 Metoprolol Succinate (Metoprolol Succinate) 25 Mg Tab.er.24h, 25 MG PO DAILY Discontinued Reason: No Longer Taking Prescribed by: KIKO LOYA on 10/25/17 1005 Oxybutynin Chloride (Oxybutynin Chloride ER) 10 Mg Tab.er.24, 10 MG PO DAILY, (Reported) Discontinued Reason: No Longer Taking Entered as Reported by: JAIR HORNER on 09/01/17 1154 Review of Systems Review of Systems Constitutional: No chills, No diaphoresis, No malaise, No weakness EENTM: No Eye Pain Respiratory: Cough, Shortness of Air Cardiovascular: Denies Chest Pain, Denies Edema; Irregular Heart Rate Gastrointestinal: Denies Abdominal Pain, Denies Diarrhea, Denies Nausea, Denies Vomiting Genitourinary: Denies Burning, Denies Discharge Musculoskeletal: No back pain, No joint pain Skin: No change in color, No change in hair/nails Psychiatric/Neurological: Denies Anxiety, Denies Depressed All Other Systems Reviewed Negative Unless Noted: Yes Past Gbrcsxw-Ahlzlx-Lqtnji Hx Patient Social History Tobacco Use?: No Substance use?: No Alcohol Use?: No Pt feels they are or have been: No Immunizations Up To Date First/Initial COVID19 Vaccinat: X'2 Second COVID19 Vaccination Markos: X'S 2 Third COVID19 Vaccination Date: X'2 Seasonal Allergies Seasonal Allergies: No Past Medical History Surgery/Hospitalization HX: HX-HTN, A FIB, copd, SURG.- [facility] Surgeries: Yes Abdominal, Orthopedic Respiratory: No COPD Currently Using CPAP: No Currently Using BIPAP: No Cardiac: Yes Hypertension Neurological: No Genitourinary: No Gastrointestinal: Yes Abdominal Hernia, Hiatal Hernia Musculoskeletal: Yes Arthritis Endocrine: No HEENT: No Cancer: No Psychosocial: No Integumentary: No Blood Disorders: No Adverse Reaction/Blood Tranf: No Family Medical History No Pertinent Family Hx Physical Exam Vital Signs Vital Signs - First Documented 05/01/23 14:03 Temp 36.1 Pulse 123 Resp 22 B/P (MAP) 158/132 (141) Pulse Ox 98 O2 Delivery Nasal Cannula O2 Flow Rate 2.00 Capillary Refill : Height, Weight, BMI Height: 5'8.00" Weight: 125lbs. 0.0oz. [id number]; 19.00 BMI Method: General Appearance: No Apparent Distress, WD/WN HEENT: PERRL/EOMI, TMs Normal, Normal ENT Inspection, Pharynx Normal Neck: Full Range of Motion, Normal Inspection, Non Tender, Supple Respiratory: Chest Non Tender, Lungs Clear, Normal Breath Sounds, No Accessory Muscle Use, No Respiratory Distress Cardiovascular: Irregularly Irregular Gastrointestinal: Normal Bowel Sounds, No Organomegaly, No Pulsatile Mass, Non Tender, Soft Extremity: Normal Capillary Refill, Normal Inspection, Normal Range of Motion Neurologic/Psychiatric: Alert, Oriented x3, No Motor/Sensory Deficits, Normal Mood/Affect, returned goods repairer II-XII Norm as Tested Progress/Results/Core Measures Results/Orders Lab Results Laboratory Tests Test 05/01/23 14:17 Range/Units White Blood Count 14.0 H 4.3-11.0 10^3/uL Red Blood Count 4.14 L 4.30-5.52 10^6/uL Hemoglobin 12.1 L 13.3-17.7 g/dL Hematocrit 37 L 40-54 % Mean Corpuscular Volume 89 80-99 fL Mean Corpuscular Hemoglobin 29 25-34 pg Mean Corpuscular Hemoglobin Concent 33 32-36 g/dL Red Cell Distribution Width 13.9 10.0-14.5 % Platelet Count 296 130-400 10^3/uL Mean Platelet Volume 9.4 9.0-12.2 fL Immature Granulocyte % (Auto) 1 % Neutrophils (%) (Auto) 80 H 42-75 % Lymphocytes (%) (Auto) 10 L 12-44 % Monocytes (%) (Auto) 9 0-12 % Eosinophils (%) (Auto) 0 0-10 % Basophils (%) (Auto) 0 0-10 % Neutrophils # (Auto) 11.2 H 1.8-7.8 10^3/uL Lymphocytes # (Auto) 1.4 1.0-4.0 10^3/uL Monocytes # (Auto) 1.2 H 0.0-1.0 10^3/uL Eosinophils # (Auto) 0.1 0.0-0.3 10^3/uL Basophils # (Auto) 0.0 0.0-0.1 10^3/uL Immature Granulocyte # (Auto) 0.1 0.0-0.1 10^3/uL Neutrophils % (Manual) 73 % Lymphocytes % (Manual) 17 % Monocytes % (Manual) 9 % Eosinophils % (Manual) 1 % Basophils % (Manual) 0 % Band Neutrophils 0 % Blood Morphology Comment NORMAL Prothrombin Time 15.4 H 12.2-14.7 SEC INR Comment 1.2 0.8-1.4 Activated Partial Thromboplast Time 45 H 24-35 SEC Sodium Level 137 135-145 MMOL/L Potassium Level 4.1 3.6-5.0 MMOL/L Chloride Level 106 98-107 MMOL/L Carbon Dioxide Level 21 21-32 MMOL/L Anion Gap 10 5-14 MMOL/L Blood Urea Nitrogen 19 H 7-18 MG/DL Creatinine 0.84 0.60-1.30 MG/DL Estimat Glomerular Filtration Rate 91 BUN/Creatinine Ratio 23 Glucose Level 107 H 70-105 MG/DL Calcium Level 8.8 8.5-10.1 MG/DL Corrected Calcium 9.3 8.5-10.1 MG/DL Magnesium Level 1.9 1.6-2.4 MG/DL Total Bilirubin 0.4 0.1-1.0 MG/DL Aspartate Amino Transf (AST/SGOT) 27 5-34 U/L Alanine Aminotransferase (ALT/SGPT) 37 0-55 U/L Alkaline Phosphatase 84 40-136 U/L Myoglobin 42.8 10.0-92.0 NG/ML Troponin I < 0.028 <0.028 NG/ML B-Type Natriuretic Peptide 1471.1 H <100.0 PG/ML Total Protein 6.9 6.4-8.2 GM/DL Albumin 3.4 3.2-4.5 GM/DL Lipase 13 8-78 U/L My Orders Orders - RAMILA CHAPIN PA Cbc With Automated Diff (05/01/23 14:09) Magnesium (05/01/23 14:09) Chest 1 View, Ap/Pa Only (05/01/23 14:09) Ekg Tracing (05/01/23 14:09) Comprehensive Metabolic Panel (05/01/23 14:09) Myoglobin Serum (05/01/23 14:09) Protime With Inr (05/01/23 14:09) Partial Thromboplastin Time (05/01/23 14:09) O2 (05/01/23 14:09) Monitor-Rhythm Ecg Trace Only (05/01/23 14:09) Ed Iv/Invasive Line Start (05/01/23 14:09) Lipase (05/01/23 14:09) Bnp [place] (05/01/23 14:09) Troponin I [place] (05/01/23 14:09) Aspirin Chewable Tablet (Baby Aspirin Ch (05/01/23 14:15) Diltiazem Injection (Cardizem Injection) (05/01/23 14:15) Manual Differential (05/01/23 14:17) Furosemide Injection (Lasix Injection) (05/01/23 15:30) Diltiazem Cd 24 Hr Capsule (Cardizem Cd (05/02/23 09:00) Ceftriaxone Iv/Im (Rocephin Iv/Im) (05/01/23 15:26) Medications Given in ED Current Medications Medications Dose Ordered Sig/Camilo Route Start Time Stop Time Status Last Admin Dose Admin Aspirin 324 mg ONCE ONCE PO 05/01/23 14:15 05/01/23 14:16 DC 05/01/23 14:12 324 MG Diltiazem HCl 10 mg ONCE ONCE IVP 05/01/23 14:15 05/01/23 14:16 DC 05/01/23 14:22 10 MG Furosemide 40 mg ONCE ONCE IVP 05/01/23 15:30 05/01/23 15:31 DC 05/01/23 15:44 40 MG Vital Signs/I&O 05/01/23 05/01/23 05/01/23 14:03 14:03 14:22 Temp 36.1 Pulse 123 115 Resp 22 B/P (MAP) 158/132 (141) 165/123 Pulse Ox 98 100 O2 Delivery Nasal Cannula Nasal Cannula O2 Flow Rate 2.00 3.00 Comment Atrial fibrillation with rapid ventricular response, 120 bpm, QRS duration 97 MS, QTc 391 MS. Departure Communication (PCP) Reviewed previous ER visits, A-fib with RVR, CHF, coronary artery disease. Patient with a history of smoking, COPD, A-fib presents ED by EMS for not feeling well, tachycardia. This is patient's third visit in the past week. Was admitted late March for A-fib with RVR. Was seen by Dr. Carpenter. Discharged with metoprolol 25 mg twice daily and Eliquis. Had echocardiogram performed which noted a ejection fraction of 55 to 60%. Patient was seen 3 days ago for A-fib with RVR was given Lopressor and continued with metoprolol. patient on arrival denies of any specific chest pain. Heart rate in the 120s. A-fib with RVR. Was given 10 mg of Cardizem. EKG showed atrial fibrillation with rapid ventricular response. CBC showed elevated white blood count of 14 which has slightly trended upward since his previous visits. Normal troponin but increase in his BNP of 1417. BNP of 200 at the end of March. Concerning for CHF. Received 40 mg IV Lasix. Patient heart rate improved from 122 to 80 bpm continue Afib. Patient was placed on 2 L nasal cannula by EMS. This was removed and patient was 97 to 100% on room air. chest x-ray did show pulmonary edema with pleural effusion. Patient was discussed with Dr. Carpenter. Recommended starting Cardizem CD 180 mg daily. Also recommends 20 mg p.o. Lasix daily. On cardiac standpoint he is okay for patient to go home. He is scheduled follow-up on Saturday. Due to the elevated white blood count did receive 1 g Rocephin. Does report a cough without strong evidence of pneumonia on chest x-ray. Concern for bronchitis or early pneumonia will discharge with doxycycline for COPD exacerbation versus early pneumonia. Patient 100% oxygen on room air. Does not require oxygen. No significant lower extremity swelling. Patient will be discharged with strict return precautions. Impression Primary Impression: Atrial fibrillation with RVR Additional Impression: CHF (congestive heart failure) Disposition: HOME, SELF-CARE Condition: Stable Departure-Patient Inst. Decision time for Depature: 15:28 Ref[place]: [facility] [place] Primary Care Physician KORY VASQUEZ MD FACP FAC CCDS Patient Instructions: Atrial Fibrillation and Atrial Flutter ED Scripts Doxycycline Monohydrate (Doxycycline Monohydrate) 100 Mg Tablet 100 MG PO BID for 7 Days, #14 TAB Prov: RAMILA CHAPIN 05/01/23 Diltiazem HCl (Cardizem Cd) 180 Mg Cap.er.24h 180 MG PO DAILY, #14 CAP Prov: RAMILA CHAPIN 05/01/23 Furosemide (Lasix) 20 Mg Tablet 20 MG PO DAILY, #10 TAB Prov: RAMILA CHAPIN 05/01/23 RAMILA CHAPIN May 01, 2023 14:11
[2023-05-01] MEDS ORDERED: ASPIRIN 81 MG CHEW (CHILDREN'S ASA) PO ONE (14:15)
[2023-05-01 14:30] LABS: BASOPHILS % (AUTO) 0 % (0-10); EOSINOPHILS # (AUTO) 0.1 10^3/uL (0.0-0.3); EOSINOPHILS % (AUTO) 0 % (0-10); HEMATOCRIT 37 % (40-54); HEMOGLOBIN 12.1 g/dL (13.3-17.7); LYMPHOCYTES # (AUTO) 1.4 10^3/uL (1.0-4.0); LYMPHOCYTES % (AUTO) 10 % (12-44); MEAN CORPUSCULAR HEMOGLOBIN 29 pg (25-34); MEAN CORPUSCULAR HGB CONC 33 g/dL (32-36); MEAN CORPUSCULAR VOLUME 89 fL (80-99); MEAN PLATELET VOLUME 9.4 fL (9.0-12.2); MONOCYTES # (AUTO) 1.2 10^3/uL (0.0-1.0); MONOCYTES % (AUTO) 9 % (0-12); NEUTROPHILS # (AUTO) 11.2 10^3/uL (1.8-7.8); NEUTROPHILS % (AUTO) 80 % (42-75); PLATELET COUNT 296 10^3/uL (130-400)
[2023-05-01 14:34] LABS: ALBUMIN 3.4 GM/DL (3.2-4.5)
[2023-05-01 14:35] LABS: CHLORIDE 106 MMOL/L (98-107); INR 1.2 (0.8-1.4); POTASSIUM 4.1 MMOL/L (3.6-5.0); PROTHROMBIN TIME PATIENT 15.4 SEC (12.2-14.7); SODIUM 137 MMOL/L (135-145)
[2023-05-01 14:36] LABS: CALCIUM 8.8 MG/DL (8.5-10.1)
[2023-05-01 14:37] LABS: GLUCOSE 107 MG/DL (70-105); TOTAL PROTEIN 6.9 GM/DL (6.4-8.2)
[2023-05-01 14:38] LABS: CARBON DIOXIDE 21 MMOL/L (21-32)
[2023-05-01 14:39] LABS: BILIRUBIN,TOTAL 0.4 MG/DL (0.1-1.0)
[2023-05-01 14:40] LABS: ALKALINE PHOSPHATASE 84 U/L (40-136)
[2023-05-01 14:41] LABS: CREATININE SERUM 0.84 MG/DL (0.60-1.30); GFR ESTIMATED 91
[2023-05-01 14:42] LABS: BUN/CREATININE RATIO 23
[2023-05-01 14:43] LABS: ALANINE AMINOTRANSFERASE 37 U/L (0-55)
[2023-05-01 14:44] LABS: MAGNESIUM 1.9 MG/DL (1.6-2.4)
[2023-05-01 14:45] LABS: LIPASE 13 U/L (8-78)
[2023-05-01 15:01] LABS: BAND NEUTROPHILS 0 %; BASOPHILS % (MANUAL) 0 %; EOSINOPHILS % (MANUAL) 1 %; LYMPHOCYTES % (MANUAL) 17 %; MONOCYTES % (MANUAL) 9 %; NEUTROPHILS % (MANUAL) 73 %; RBC MORPH NORMAL
--- NOTE | 2023-05-01 15:12 | Diagnostic Imaging Report ---
EXAMINATION: Chest 1 view HISTORY: Chest pain COMPARISON: 04/28/2023 FINDINGS: There is moderate edema and a small right effusion. No pneumothorax. Heart size is normal. IMPRESSION: 1. Moderate edema and small right effusion. Dictated by: Dictated on workstation # [id number]
[2023-05-01] MEDS ORDERED: cefTRIAXone IV/IM 1,000 MG in NS (IVPB) 50 ML IV STA (15:26)
[2023-05-01] MEDS ORDERED: DOXY100T31 PO (15:29)
[2023-05-01] MEDS ORDERED: FURO-125 PO (15:29)
[2023-05-01] MEDS ORDERED: DILT180C67 PO (15:29)
[2023-05-01] MEDS ORDERED: FUROSEMIDE 40 MG/4 ML INJ (LASIX) IVP ONE (15:30)
[2023-05-01 16:42] VITALS: BP 147/100
== END 2023-05-01 16:42 | disposition home or self-care (01) ==
LOC: EDUNIT# 13:59 → ER 14:00
DX: I48.91 Unspecified atrial fibrillation (principal); I11.0 Hypertensive heart disease with heart failure; I50.9 Heart failure, unspecified; Z79.02 Long term (current) use of antithrombotics/antiplatelets; Z79.899 Other long term (current) drug therapy; Z87.891 Personal history of nicotine dependence
CPT/HCPCS: 36415; 71045; 80053; 83690; 83735; 83874; 83880; 84484; 85007; 85025; 85027; 85610; 85730; 93005; 93041

== ENCOUNTER → 2023-10-03 | Outpatient (CLI) | payer MEDICAID ==
[~2023-10-03] MED LIST changes: +DILT180C67 PO; +DOXY100T31 PO; +FURO-125 PO
--- NOTE | 2023-10-03 18:17 | Diagnostic Imaging Report ---
INDICATION: Lumbar pain not getting better. TECHNIQUE: AP, lateral and spot imaging of the lumbar spine CORRELATION STUDY: None. FINDINGS: Leftward curvature of the lumbar spine apex at L1-L2. Trace anterolisthesis of L4 on L5. Lumbar vertebral body heights overall are without acute appearing compression deformity. There is moderate to marked disc space narrowing at essentially all levels of the lumbar spine. Bulky bridging osteophytes along the right aspect at L1-L2 and to a lesser degree L2-L3 and L3-L4. Atherosclerotic vascular calcification. Prior right lower quadrant hernia repair. Postoperative right hip arthroplasty. IMPRESSION: Mild/moderate leftward curvature of the lumbar spine. Rather marked multilevel degenerative disc disease without acute finding. Dictated by: Dictated on workstation # [id number]
== END ==
LOC: RAD 10:51
PROVIDERS: ATTEND Family Medicine
DX: M51.36 Other intervertebral disc degeneration, lumbar region (principal)
CPT/HCPCS: 72100